=== PATIENT | male | born 1935 | race Caucasian/White ===

== ENCOUNTER 2017-08-27 17:32 | Inpatient (IN) | payer MEDICARE, OTHER ==
--- NOTE | 2017-08-27 19:00 | ED Physician Chart ---
ED Chief Complaint/HPI - Patient Information Date Seen:: 08/27/17 Time Seen:: 17:45 Chief Complaint:: Depression History of Present Illness:: onset x 3 days of depression; no report of trauma, SIs, H/As, neck pain, C/P, SOB, Abd. pain, A/N/V/D/C, fever, chills, or urinary s/s Allergies:: Allergies Allergy/AdvReac Type Severity Reaction Status Date / Time No Known Allergies Allergy Verified 08/27/17 17:53 Vitals:: Vital Signs - 8 hr 08/27/17 17:46 Temp 97.7 F HR 81 RR 15 BP 112/52 O2 Sat % 95 Historian:: Patient, EMS Review:: Nurse's Note Reviewed, Old Chart Reviewed, EMS run form Reviewed <Abraham Verdugo - Last Filed: 08/27/17 18:57> - Patient Information Allergies:: Allergies Allergy/AdvReac Type Severity Reaction Status Date / Time No Known Allergies Allergy Verified 08/27/17 17:53 Vitals:: Vital Signs - 8 hr 08/27/17 17:46 Temp 97.7 F HR 81 RR 15 BP 112/52 O2 Sat % 95 <Andrei Forde - Last Filed: 08/27/17 20:06> ED Review of Systems - Review of Systems General/Constitutional: No fever, No chills, No weight loss, No weakness, No diaphoresis, No edema, No loss of appetite Skin: No skin lesions, No rash, No bruising Head: No headache, No light-headedness Eyes: No loss of vision, No pain, No diplopia ENT: No earache, No nasal drainage, No sore throat, No tinnitus Neck: No neck pain, No swelling, No thyromegaly, No stiffness, No mass noted Cardio Vascular: No chest pain, No palpitations, No PND, No orthopnea, No edema Pulmonary: No SOB, No cough, No sputum, No wheezing GI: No nausea, No vomiting, No diarrhea, No pain, No melena, No hematochezia, No constipation, No hematemesis G/U: No dysuria, No frequency, No hematuria, No nacturia Musculoskeletal: No bone or joint pain, No back pain, No muscle pain Endocrine: No polyuria, No polydipsia Psychiatric: Prior psych history, Depression, Anxiety, No suicidal ideation, No homicidal ideation, No auditory hallucination, No visual hallucination Hematopoietic: No bruising, No lymphadenopathy Allergic/Immuno: No urticaria, No angioedema Neurological: No syncope, No focal symptoms, No weakness, No paresthesia, No headache, No seizure, No dizziness, Confusion, No vertigo <Abraham Verdugo - Last Filed: 08/27/17 18:57> ED Past Medical History - Past Medical History Obtainable: Yes Past Medical History: Asthma/COPD, PUD/GERD, Dementia Family History: HTN Social History: Non Smoker, Alcohol, No Drug Use, Single, Care Facility Surgical History: None Psychiatricy History: Depression, Dementia Medication: Reviewed <Nayajeojse mAbraham - Last Filed: 08/27/17 18:57> ED Physical Exam - Physical Examination General/Constitutional: Awake, Well-developed, well-nourished, Alert, No distress, GCS 15, Non-toxic appearing, Ambulatory Head: Atraumatic Eyes: Lids, conjuctiva normal, PERRL, EOMI Skin: Nl inspection, No rash, No skin lesions, No ecchymosis, Well hydrated, No lymphadenopathy ENMT: External ears, nose nl, TM canals nl, Nasal exam nl, Lips, teeth, gums nl , Oropharynx nl, Tonsils nl Neck: Nontender, Full ROM w/o pain, No JVD, No nuchal rigidity, No bruit, No mass, No stridor Respiratory: Nl effort/Exclusion, Clear to Auscultation, No Wheeze/Rhonchi/Rales Cardio Vascular: RRR, No murmur, gallop, rubs, NL S1 S2, Carotid/Femoral/Distal pulses equal bilaterally GI: No tenderness/rebounding/guarding, No organomegaly, No hernia, Normal BS's, Nondistended, No mass/bruits, No McBurney tenderness : No CVA tenderness Extremities: No tenderness or effusion, Full ROM, normal strength in all extremities, No edema, Normal digits & nails Neuro/Psych: Alert/oriented, DTR's symmetric, Normal sensory exam, Normal motor strength, Judgement/insight normal, Mood normal, Normal gait, No focal deficits Other Neuro/Psych comments:: Mood/Affect: Labile; + Psychomotor Retardation; no SIs Misc: Normal back, No paraspinal tenderness <Abraham Verdugo - Last Filed: 08/27/17 18:57> ED Labs/Radiology/EKG Results - Lab Results Results: Laboratory Tests 08/27/17 08/27/17 19:17 19:17 WBC 7.1 RBC 4.30 Hgb 13.8 Hct 41.3 MCV 96.2 MCH 32.0 H MCHC Differential 33.3 RDW 13.1 Plt Count 183 MPV 7.4 Neutrophils % 63.3 Lymphocytes % 23.4 Monocytes % 6.2 Eosinophils % 6.8 H Basophils % 0.3 Sodium 137 Potassium 4.4 Chloride 106 Carbon Dioxide 26.7 Anion Gap 8.7 BUN 21 Creatinine 1.2 Est GFR ( Amer) TNP Est GFR (Non-Af Amer) TNP BUN/Creatinine Ratio 17.5 Glucose 96 Calcium 9.0 Total Bilirubin 0.4 AST 22 ALT 20 Alkaline Phosphatase 97 Total Protein 7.3 Albumin 3.7 L Globulin 3.6 Albumin/Globulin Ratio 1.0 Triglycerides 95 Cholesterol 188 LDL Cholesterol Direct 124 HDL Cholesterol 56 Salicylates < 25.0 L Acetaminophen < 10.0 L Ethyl Alcohol < 10 - EKG Interpretations Rate & Rhythm: normal sinus rhythm with a rate of 61; normal axis deviation Comments:: No ST or T changes <Andrei Forde - Last Filed: 08/27/17 20:06> ED Septic Shock - . Is Septic Shock (SBP<90, OR Lactate>4 mmol\L) present?: No - <6hrs of presentation: Vital Signs: Vital Signs - 8 hr 08/27/17 17:46 Temp 97.7 F HR 81 RR 15 BP 112/52 O2 Sat % 95 <Abraham Verdugo - Last Filed: 08/27/17 18:57> - <6hrs of presentation: Vital Signs: Vital Signs - 8 hr 08/27/17 17:46 Temp 97.7 F HR 81 RR 15 BP 112/52 O2 Sat % 95 <Andrei Forde - Last Filed: 08/27/17 20:06> ED Reassessment (Disposition) - Reassessment Reassessment Condition:: Improved - Diagnosis Diagnosis:: Depression; Medical clearance <Abraham Verdugo - Last Filed: 06/11/18 18:57> - Patient Disposition Admitting Medical Physician:: Carlos Whitley Admitting Psych Physician:: Espinoza Espinal Condition at Disposition:: Stable, Unchanged <Andrei Forde - Last Filed: 08/27/17 20:06> ED Discharge Plan <Abraham Verdugo - Last Filed: 08/27/17 18:57> <Andrei Forde - Last Filed: 08/27/17 20:06> - Patient Disposition Instructions: Psychosis
[2017-08-27 19:28] LABS: % BASOPHILS 0.3 % (0.0-2.0); % EOSINOPHILS 6.8 % (0.0-5.0); % LYMPHOCYTES 23.4 % (20.0-50.0); % MONOCYTES 6.2 % (2.0-10.0); % NEUTROPHILS 63.3 % (40.0-80.0); EOSINOPHILE ABSOLUTE 0.5 Th/cmm (0.1-0.4); HEMATOCRIT 41.3 % (41.0-60); HEMOGLOBIN 13.8 gm/dL (12-16); LYMPHOCYTE ABSOLUTE 1.7 Th/cmm (1.5-3.0); MEAN CELL VOLUME 96.2 fl (80-99); MEAN CORPUSCULAR HGB CONC 33.3 pg (28.0-36.0); MEAN PLATELET VOLUME 7.4 fl; MONOCYTE ABSOLUTE 0.4 Th/cmm (0.3-1.0); NEUTROPHILE ABSOLUTE 4.5 Th/cmm (1.8-8.0); PLATELET COUNT 183 Th/cmm (150-400); RED CELL DISTRIBUTION WIDTH 13.1 % (11.5-20.0); WHITE BLOOD COUNT 7.1 Th/cmm (4.8-10.8)
[2017-08-27 19:44] LABS: ACETAMINOPHEN < 10.0 ug/mL (10.0-30.0); ALBUMIN 3.7 gm/dL (4.2-5.5); ALKALINE PHOSPHATASE 97 U/L (34-104); ANION GAP 8.7 (7.0-16.0); BILIRUBIN,TOTAL 0.4 mg/dL (0.3-1.0); BUN - UREA NITROGEN 21 mg/dL (7-25); CARBON DIOXIDE 26.7 mEq/L (21.0-31.0); CHLORIDE 106 mEq/L (98-107); CHOLESTEROL 188 mg/dL (<200); CREATININE - SERUM 1.2 mg/dL (0.7-1.3); GLUCOSE 96 mg/dL (70-105); HDL -HIGH DENSITY LIPOPROTEIN 56 mg/dL (23-92); POTASSIUM SERUM 4.4 mEq/L (3.5-5.1); SALICYLATES (ASPIRIN) < 25.0 mg/L (30.0-100.0); SGOT 22 U/L (13-39); SGPT/ALT 20 U/L (7-52); SODIUM SERUM 137 mEq/L (136-145); TOTAL PROTEIN,SERUM 7.3 gm/dL (6.0-8.3); TRIGLYCERIDES 95 mg/dL (<150)
[2017-08-27 21:01] VITALS: BP 135/90
[2017-08-27] MEDS ORDERED: Magnesium Hydroxide (MOM) 30 mL UDC PO PRN (21:02)
[2017-08-27] MEDS ORDERED: Maalox 30 mL Cup PO PRN (21:02)
[2017-08-28] MEDS ORDERED: ALBUTEROL IH SCH (09:00)
[2017-08-28] MEDS ORDERED: TIOTROPIUM BROMIDE 18 MCG INH SCH (09:00)
--- NOTE | 2017-08-28 09:11 | History and Physical ---
History of Present Illness - HPI Chief Complaint: Depression HPI: Patient was send from [facility] for evaluation of Depression. 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 GI: Report: No Pertinent Hx Psych: Report: Depression Musculoskeletal: Report: No Pertinent Hx Rheumatologic: Report: No pertinent Hx Infectious Disease: Report: No Pertinent Hx Renal/: Report: No Pertinent Hx Endocrine: Report: No Pertinent Hx Dermatology: Report: No Pertinent Hx - Past Surgical History Past Surgical History: No pertinent Hx Family Medical History - Family Member Mother History Unknown: Yes Ethnicity: Unknown Living Status: Unknown Social History Smoke: No Alcohol: None Drugs: None [facility] Domestic Violence: Negative - Medications Home Medications: Home Medication Medication Instructions Recorded Type Albuterol Sulfate [Ventolin Hfa] 90 mcg IH BID 08/27/17 History Citalopram Hydrobromide 10 mg PO DAILY 08/27/17 History [Citalopram HBr] Donepezil HCl [Aricept] 10 mg PO HS 08/27/17 History Magnesium Hydroxide [Milk of 30 ml PO HS PRN 08/27/17 History Magnesia] Memantine HCl [Namenda Xr] 28 mg PO HS 08/27/17 History Multivitamin [Multivitamins] 1 tab PO DAILY 08/27/17 History Tiotropium [place] [Spiriva] 18 mcg IH DAILY 08/27/17 History - Allergies Allergies/Adverse Reactions: Allergies Allergy/AdvReac Type Severity Reaction Status Date / Time No Known Allergies Allergy Verified 08/27/17 17:53 Review of Systems - Review of Systems Constitutional: Report: No Significant Eyes: Report: No Significant ENT: Report: No Significant Respiratory: Report: No Significant Cardiovascular: Report: No Significant Gastrointestinal: Report: No Significant Genitourinary: Report: No Significant Musculoskeletal: Report: No Significant Skin: Report: No Significant Neurological: Report: Weakness Physical Exam - Physical Exam HEENT: Report: Ears Nose Throat within normal limits Neck: Report: Within normal limits Cardiovascular Systems: Report: Regular, Rate and Rhythm Respiratory: Report: Breath Sounds are within normal limits Abdomen: Report: Non-tender to palpation Back: Report: Inspection of back is within normal limits. Extremities: Report: Non-tender to palpation. Skin: Report: Color of skin is within normal limits Neuro/Psych: Report: Disoriented to name time or place, Depressed affect - Lab Results All Lab Results last 24 hours: Laboratory Results - last 24 hr 08/27/17 08/27/17 08/27/17 19:17 19:17 19:17 WBC 7.1 RBC 4.30 Hgb 13.8 Hct 41.3 MCV 96.2 MCH 32.0 H MCHC Differential 33.3 RDW 13.1 Plt Count 183 MPV 7.4 Neutrophils % 63.3 Lymphocytes % 23.4 Monocytes % 6.2 Eosinophils % 6.8 H Basophils % 0.3 Sodium 137 Potassium 4.4 Chloride 106 Carbon Dioxide 26.7 Anion Gap 8.7 BUN 21 Creatinine 1.2 Est GFR ( Amer) TNP Est GFR (Non-Af Amer) TNP BUN/Creatinine Ratio 17.5 Glucose 96 Calcium 9.0 Total Bilirubin 0.4 AST 22 ALT 20 Alkaline Phosphatase 97 Total Protein 7.3 Albumin 3.7 L Globulin 3.6 Albumin/Globulin Ratio 1.0 Triglycerides 95 Cholesterol 188 LDL Cholesterol Direct 124 HDL Cholesterol 56 TSH 1.92 Salicylates < 25.0 L Acetaminophen < 10.0 L Ethyl Alcohol < 10 - Assessment Assessment: Patient is awake, alert, calm, depress. Dx: Dementia alzheimer type, Depression , COPD - Plan Plan: Patient is under Psychiatric care, continue with SNF meds. Will continue to monitor.
[2017-08-28] MEDS: Multivitamin Tab PO SCH (09:48)
--- NOTE | 2017-08-28 12:17 | Psychosocial Evaluation ---
DATE OF SERVICE: 08/27/2017 IDENTIFYING INFORMATION: The patient is an 82-year-old male. CHIEF COMPLAINT: No answer. HISTORY OF PRESENT ILLNESS: The patient was sent from [facility] facility because of agitation and aggressive towards staff with a history of psychosis, NOS. The patient himself was a poor historian. He complained of feeling tired. He could not sleep well with poor appetite. He reports he is unable to tell me the date. He is unable to tell me his age, but he was told me he was for 5 years and has 12 children. 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 Denies substance abuse, but very confused, has been on Celexa. The patient is unpredictable and impulsive. He is on Celexa 10 mg a day. MEDICAL HISTORY: Deferred to the medical doctor. ALLERGIES: He has no known drug allergy. MEDICATIONS: The patient unable to give me information. FAMILY AND SOCIAL HISTORY: The patient is for 5 years, was for a long period of time, maybe 54 and 24 years of age he said, not sure. He reports that he did not know where he lived, he lived at [facility]. 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 He reports that he is a poor historian, unable to tell me further information regarding family history. MENTAL STATUS EXAMINATION: The patient is appropriately dressed, not well groomed. He was alert. He was, however, confused, unable to tell me the date, where he is, why he is here, unable to participate in meaningful conversation or make safe plan for self-care. Long and short term memory is poor. He denies any auditory or visual hallucinations. Denies any intent to harm self or anybody. He was acting agitated and aggressive at the [facility]. His insight and judgment is impaired. IMPRESSION: AXIS I: Psychosis, not otherwise specified, dementia. Depression, not otherwise specified. MEDICAL DIAGNOSES: Deferred to the medical doctor. His assets, he is accepting treatment and negative poor coping skills. INITIAL TREATMENT PLAN: The patient will be continued with the Celexa and Aricept 10 mg at bedtime. We will do group therapy, milieu therapy, and individual therapy. ESTIMATED LENGTH OF STAY: 3-7 days. DISCHARGE CRITERIA: Decreasing depression, agitation after discharge, outpatient. JOB# [id number]
[2017-08-28 15:47] LABS: A1C % 6.7 % (4.0-6.0)
[2017-08-28] MEDS ORDERED: Albuterol/Ipratropium Neb 3 ML AERS HHN SCH (19:00)
[2017-08-29] MEDS: Multivitamin Tab PO SCH (09:10)
--- NOTE | 2017-08-29 12:41 | General Progress Note ---
Subjective - Review of Systems Service Date: 08/29/17 Subjective: Patient is confused Objective - Results Result Diagrams: 08/27/17 19:17 08/27/17 19:17 Recent Labs: Laboratory Last Values WBC 7.1 Th/cmm (4.8-10.8) 08/27/17 19:17 RBC 4.30 Mil/cmm (3.80-5.80) 08/27/17 19:17 Hgb 13.8 gm/dL (12-16) 08/27/17 19:17 Hct 41.3 % (41.0-60) 08/27/17 19:17 MCV 96.2 fl (80-99) 08/27/17 19:17 MCH 32.0 pg (27.0-31.0) H 08/27/17 19:17 MCHC Differential 33.3 pg (28.0-36.0) 08/27/17 19:17 RDW 13.1 % (11.5-20.0) 08/27/17 19:17 Plt Count 183 Th/cmm (150-400) 08/27/17 19:17 MPV 7.4 fl 08/27/17 19:17 Neutrophils % 63.3 % (40.0-80.0) 08/27/17 19:17 Lymphocytes % 23.4 % (20.0-50.0) 08/27/17 19:17 Monocytes % 6.2 % (2.0-10.0) 08/27/17 19:17 Eosinophils % 6.8 % (0.0-5.0) H 08/27/17 19:17 Basophils % 0.3 % (0.0-2.0) 08/27/17 19:17 Sodium 137 mEq/L (136-145) 08/27/17 19:17 Potassium 4.4 mEq/L (3.5-5.1) 08/27/17 19:17 Chloride 106 mEq/L (98-107) 08/27/17 19:17 Carbon Dioxide 26.7 mEq/L (21.0-31.0) 08/27/17 19:17 Anion Gap 8.7 (7.0-16.0) 08/27/17 19:17 BUN 21 mg/dL (7-25) 08/27/17 19:17 Creatinine 1.2 mg/dL (0.7-1.3) 08/27/17 19:17 Est GFR ( Amer) TNP 08/27/17 19:17 Est GFR (Non-Af Amer) TNP 08/27/17 19:17 BUN/Creatinine Ratio 17.5 08/27/17 19:17 Glucose 96 mg/dL (70-105) 08/27/17 19:17 Hemoglobin A1c % 6.7 % (4.0-6.0) H 08/27/17 19:17 Calcium 9.0 mg/dL (8.6-10.3) 08/27/17 19:17 Total Bilirubin 0.4 mg/dL (0.3-1.0) 08/27/17 19:17 AST 22 U/L (13-39) 08/27/17 19:17 ALT 20 U/L (7-52) 08/27/17 19:17 Alkaline Phosphatase 97 U/L (34-104) 08/27/17 19:17 Total Protein 7.3 gm/dL (6.0-8.3) 08/27/17 19:17 Albumin 3.7 gm/dL (4.2-5.5) L 08/27/17 19:17 Globulin 3.6 gm/dL 08/27/17 19:17 Albumin/Globulin Ratio 1.0 (1.0-1.8) 08/27/17 19:17 Triglycerides 95 mg/dL (<150) 08/27/17 19:17 Cholesterol 188 mg/dL (<200) 08/27/17 19:17 LDL Cholesterol Direct 124 mg/dL (75-193) 08/27/17 19:17 HDL Cholesterol 56 mg/dL (23-92) 08/27/17 19:17 TSH 1.92 uIU/ml (0.34-5.60) 08/27/17 19:17 Salicylates < 25.0 mg/L (30.0-100.0) L 08/27/17 19:17 Acetaminophen < 10.0 ug/mL (10.0-30.0) L 08/27/17 19:17 Ethyl Alcohol < 10 mg/dL (0-10) 08/27/17 19:17 RPR NONREACTIVE (NONREACTIVE) 08/27/17 19:17 - Physical Exam Vitals and I&O: Vital Signs Temp 97.2 F 08/29/17 06:42 Pulse 80 08/29/17 06:42 Resp 20 08/29/17 06:42 BP 140/76 08/29/17 06:42 Pulse Ox 96 08/29/17 06:42 Intake & Output 08/28/17 08/29/17 08/29/17 18:59 06:59 18:59 Intake Total 1200 120 Balance 1200 120 Intake: Oral 1200 120 Other: # Voids 3 2 Active Medications: Current Medications Acetaminophen (Tylenol) 650 mg PO Q4HR PRN PRN Reason: Mild Pain / Temp above 100 Stop: 10/26/17 21:01 Al Hydrox/Mg Hydrox/Simethicone (Maalox) 30 ml PO Q4HR PRN PRN Reason: GI DISTRESS Stop: 10/26/17 21:01 Albuterol/Ipratropium (Duoneb Neb) 3 ml HHN BIDRT [facility] Stop: 10/27/17 18:59 Citalopram Hydrobromide (Celexa) 10 mg PO DAILY [facility]; Protocol Stop: 10/27/17 08:59 Last Admin: 08/29/17 09:09 Dose: 10 mg Donepezil HCl (Aricept) 10 mg PO HS [facility] Stop: 10/27/17 20:59 Last Admin: 08/28/17 21:10 Dose: 10 mg Lorazepam (Ativan) 0.5 mg PO Q4HR PRN; Protocol PRN Reason: anxiety/agitation Stop: 09/26/17 21:01 Last Admin: 08/28/17 12:52 Dose: 0.5 mg Magnesium Hydroxide (Milk Of Magnesia) 30 ml PO HS PRN PRN Reason: Constipation Memantine (Namenda) 10 mg PO BID [facility] Stop: 10/28/17 08:59 Last Admin: 08/29/17 09:10 Dose: 10 mg Multivitamins/Vitamin C (Theragran) 1 tab PO DAILY [facility] Stop: 10/27/17 08:59 Last Admin: 08/29/17 09:10 Dose: 1 tab Zolpidem Tartrate (Ambien) 5 mg PO HS PRN PRN Reason: Insomnia Stop: 10/26/17 21:01 Last Admin: 08/28/17 21:10 Dose: 5 mg General: Alert, No acute distress HEENT: Atraumatic Neck: Supple Cardiovascular: Regular rate Lungs: Clear to auscultation Abdomen: Bowel sounds, Soft Extremities: Other (NO edema) Neurological: Normal gait Skin: Other (Warm and dry) Psych/Mental Status: Other (Confused, not oriented) Assessment/Plan - Assessment Assessment: Patient is awake, alert, calm, depress. Dx: Dementia alzheimer type, Depression , COPD - Plan Plan: Patient is under Psychiatric care, continue with SNF meds. Will continue to monitor.
[2017-08-30] MEDS: Multivitamin Tab PO SCH (09:11)
--- NOTE | 2017-08-30 09:47 | General Progress Note ---
Subjective - Review of Systems Service Date: 08/30/17 Subjective: Patient is confused Objective - Results Result Diagrams: 08/27/17 19:17 08/27/17 19:17 Recent Labs: Laboratory Last Values WBC 7.1 Th/cmm (4.8-10.8) 08/27/17 19:17 RBC 4.30 Mil/cmm (3.80-5.80) 08/27/17 19:17 Hgb 13.8 gm/dL (12-16) 08/27/17 19:17 Hct 41.3 % (41.0-60) 08/27/17 19:17 MCV 96.2 fl (80-99) 08/27/17 19:17 MCH 32.0 pg (27.0-31.0) H 08/27/17 19:17 MCHC Differential 33.3 pg (28.0-36.0) 08/27/17 19:17 RDW 13.1 % (11.5-20.0) 08/27/17 19:17 Plt Count 183 Th/cmm (150-400) 08/27/17 19:17 MPV 7.4 fl 08/27/17 19:17 Neutrophils % 63.3 % (40.0-80.0) 08/27/17 19:17 Lymphocytes % 23.4 % (20.0-50.0) 08/27/17 19:17 Monocytes % 6.2 % (2.0-10.0) 08/27/17 19:17 Eosinophils % 6.8 % (0.0-5.0) H 08/27/17 19:17 Basophils % 0.3 % (0.0-2.0) 08/27/17 19:17 Sodium 137 mEq/L (136-145) 08/27/17 19:17 Potassium 4.4 mEq/L (3.5-5.1) 08/27/17 19:17 Chloride 106 mEq/L (98-107) 08/27/17 19:17 Carbon Dioxide 26.7 mEq/L (21.0-31.0) 08/27/17 19:17 Anion Gap 8.7 (7.0-16.0) 08/27/17 19:17 BUN 21 mg/dL (7-25) 08/27/17 19:17 Creatinine 1.2 mg/dL (0.7-1.3) 08/27/17 19:17 Est GFR ( Amer) TNP 08/27/17 19:17 Est GFR (Non-Af Amer) TNP 08/27/17 19:17 BUN/Creatinine Ratio 17.5 08/27/17 19:17 Glucose 96 mg/dL (70-105) 08/27/17 19:17 Hemoglobin A1c % 6.7 % (4.0-6.0) H 08/27/17 19:17 Calcium 9.0 mg/dL (8.6-10.3) 08/27/17 19:17 Total Bilirubin 0.4 mg/dL (0.3-1.0) 08/27/17 19:17 AST 22 U/L (13-39) 08/27/17 19:17 ALT 20 U/L (7-52) 08/27/17 19:17 Alkaline Phosphatase 97 U/L (34-104) 08/27/17 19:17 Total Protein 7.3 gm/dL (6.0-8.3) 08/27/17 19:17 Albumin 3.7 gm/dL (4.2-5.5) L 08/27/17 19:17 Globulin 3.6 gm/dL 08/27/17 19:17 Albumin/Globulin Ratio 1.0 (1.0-1.8) 08/27/17 19:17 Triglycerides 95 mg/dL (<150) 08/27/17 19:17 Cholesterol 188 mg/dL (<200) 08/27/17 19:17 LDL Cholesterol Direct 124 mg/dL (75-193) 08/27/17 19:17 HDL Cholesterol 56 mg/dL (23-92) 08/27/17 19:17 TSH 1.92 uIU/ml (0.34-5.60) 08/27/17 19:17 Salicylates < 25.0 mg/L (30.0-100.0) L 08/27/17 19:17 Acetaminophen < 10.0 ug/mL (10.0-30.0) L 08/27/17 19:17 Ethyl Alcohol < 10 mg/dL (0-10) 08/27/17 19:17 RPR NONREACTIVE (NONREACTIVE) 08/27/17 19:17 - Physical Exam Vitals and I&O: Vital Signs Temp 97.2 F 08/30/17 06:34 Pulse 62 08/30/17 06:34 Resp 19 08/30/17 06:34 BP 125/69 08/30/17 06:34 Pulse Ox 97 08/30/17 06:34 Intake & Output 08/29/17 08/30/17 08/30/17 18:59 06:59 18:59 Intake Total 1200 120 Balance 1200 120 Intake: Oral 1200 120 Other: # Voids 3 2 # Bowel Movements 1 Active Medications: Current Medications Acetaminophen (Tylenol) 650 mg PO Q4HR PRN PRN Reason: Mild Pain / Temp above 100 Stop: 10/26/17 21:01 Al Hydrox/Mg Hydrox/Simethicone (Maalox) 30 ml PO Q4HR PRN PRN Reason: GI DISTRESS Stop: 10/26/17 21:01 Albuterol/Ipratropium (Duoneb Neb) 3 ml HHN BIDRT [facility] Stop: 10/27/17 18:59 Citalopram Hydrobromide (Celexa) 10 mg PO DAILY [facility]; Protocol Stop: 10/27/17 08:59 Last Admin: 08/30/17 09:07 Dose: 10 mg Donepezil HCl (Aricept) 10 mg PO HS [facility] Stop: 10/27/17 20:59 Last Admin: 08/29/17 21:08 Dose: 10 mg Lorazepam (Ativan) 0.5 mg PO Q4HR PRN; Protocol PRN Reason: anxiety/agitation Stop: 09/26/17 21:01 Last Admin: 08/29/17 16:08 Dose: 0.5 mg Magnesium Hydroxide (Milk Of Magnesia) 30 ml PO HS PRN PRN Reason: Constipation Memantine (Namenda) 10 mg PO BID [facility] Stop: 10/28/17 08:59 Last Admin: 08/30/17 09:11 Dose: 10 mg Multivitamins/Vitamin C (Theragran) 1 tab PO DAILY [facility] Stop: 10/27/17 08:59 Last Admin: 08/30/17 09:11 Dose: 1 tab Zolpidem Tartrate (Ambien) 5 mg PO HS PRN PRN Reason: Insomnia Stop: 10/26/17 21:01 Last Admin: 08/29/17 21:09 Dose: 5 mg General: Alert, No acute distress HEENT: Atraumatic Neck: Supple Cardiovascular: Regular rate Lungs: Clear to auscultation Abdomen: Bowel sounds, Soft Extremities: Other (NO edema) Neurological: Normal gait Skin: Other (Warm and dry) Psych/Mental Status: Other (Confused, not oriented) Assessment/Plan - Assessment Assessment: Patient is awake, alert, calm, depress. Dx: Dementia alzheimer type, Depression , COPD - Plan Plan: Patient is under Psychiatric care, continue with SNF meds. Will continue to monitor.
--- NOTE | 2017-08-30 20:41 | Progress Notes ---
DATE: SUBJECTIVE: Chart reviewed and the patient interviewed. Also discussed the patient's condition with the staff and reviewed records and labs. The patient is still aggressive and is still intrusive to others. Also, is still easily agitated and easily irritable. The patient also is still wandering around the unit and aggressive with others. Otherwise, the patient is compliant with taking his medications with no side effects of Celexa and Aricept. ASSESSMENT: The patient is still aggressive and needs close monitoring. TREATMENT PLAN: Continue Celexa and Aricept. Also, continue to work on his aggressive behavior and poor impulse control and we will continue to follow up. JOB# [id number]
[2017-08-31] MEDS: Multivitamin Tab PO SCH (09:18)
--- NOTE | 2017-08-31 09:18 | General Progress Note ---
Subjective - Review of Systems Service Date: 08/31/17 Subjective: Patient is confused Objective - Results Result Diagrams: 08/27/17 19:17 08/27/17 19:17 Recent Labs: Laboratory Last Values WBC 7.1 Th/cmm (4.8-10.8) 08/27/17 19:17 RBC 4.30 Mil/cmm (3.80-5.80) 08/27/17 19:17 Hgb 13.8 gm/dL (12-16) 08/27/17 19:17 Hct 41.3 % (41.0-60) 08/27/17 19:17 MCV 96.2 fl (80-99) 08/27/17 19:17 MCH 32.0 pg (27.0-31.0) H 08/27/17 19:17 MCHC Differential 33.3 pg (28.0-36.0) 08/27/17 19:17 RDW 13.1 % (11.5-20.0) 08/27/17 19:17 Plt Count 183 Th/cmm (150-400) 08/27/17 19:17 MPV 7.4 fl 08/27/17 19:17 Neutrophils % 63.3 % (40.0-80.0) 08/27/17 19:17 Lymphocytes % 23.4 % (20.0-50.0) 08/27/17 19:17 Monocytes % 6.2 % (2.0-10.0) 08/27/17 19:17 Eosinophils % 6.8 % (0.0-5.0) H 08/27/17 19:17 Basophils % 0.3 % (0.0-2.0) 08/27/17 19:17 Sodium 137 mEq/L (136-145) 08/27/17 19:17 Potassium 4.4 mEq/L (3.5-5.1) 08/27/17 19:17 Chloride 106 mEq/L (98-107) 08/27/17 19:17 Carbon Dioxide 26.7 mEq/L (21.0-31.0) 08/27/17 19:17 Anion Gap 8.7 (7.0-16.0) 08/27/17 19:17 BUN 21 mg/dL (7-25) 08/27/17 19:17 Creatinine 1.2 mg/dL (0.7-1.3) 08/27/17 19:17 Est GFR ( Amer) TNP 08/27/17 19:17 Est GFR (Non-Af Amer) TNP 08/27/17 19:17 BUN/Creatinine Ratio 17.5 08/27/17 19:17 Glucose 96 mg/dL (70-105) 08/27/17 19:17 Hemoglobin A1c % 6.7 % (4.0-6.0) H 08/27/17 19:17 Calcium 9.0 mg/dL (8.6-10.3) 08/27/17 19:17 Total Bilirubin 0.4 mg/dL (0.3-1.0) 08/27/17 19:17 AST 22 U/L (13-39) 08/27/17 19:17 ALT 20 U/L (7-52) 08/27/17 19:17 Alkaline Phosphatase 97 U/L (34-104) 08/27/17 19:17 Total Protein 7.3 gm/dL (6.0-8.3) 08/27/17 19:17 Albumin 3.7 gm/dL (4.2-5.5) L 08/27/17 19:17 Globulin 3.6 gm/dL 08/27/17 19:17 Albumin/Globulin Ratio 1.0 (1.0-1.8) 08/27/17 19:17 Triglycerides 95 mg/dL (<150) 08/27/17 19:17 Cholesterol 188 mg/dL (<200) 08/27/17 19:17 LDL Cholesterol Direct 124 mg/dL (75-193) 08/27/17 19:17 HDL Cholesterol 56 mg/dL (23-92) 08/27/17 19:17 TSH 1.92 uIU/ml (0.34-5.60) 08/27/17 19:17 Salicylates < 25.0 mg/L (30.0-100.0) L 08/27/17 19:17 Acetaminophen < 10.0 ug/mL (10.0-30.0) L 08/27/17 19:17 Ethyl Alcohol < 10 mg/dL (0-10) 08/27/17 19:17 RPR NONREACTIVE (NONREACTIVE) 08/27/17 19:17 - Physical Exam Vitals and I&O: Vital Signs Temp 98.4 F 08/31/17 07:08 Pulse 95 08/31/17 07:08 Resp 19 08/31/17 07:08 BP 138/74 08/31/17 07:08 Pulse Ox 97 08/31/17 07:08 Intake & Output 08/30/17 08/31/17 08/31/17 18:59 06:59 18:59 Intake Total 1200 500 Balance 1200 500 Intake: Oral 1200 500 Other: # Voids 4 # Bowel Movements 1 1 Active Medications: Current Medications Acetaminophen (Tylenol) 650 mg PO Q4HR PRN PRN Reason: Mild Pain / Temp above 100 Stop: 10/26/17 21:01 Al Hydrox/Mg Hydrox/Simethicone (Maalox) 30 ml PO Q4HR PRN PRN Reason: GI DISTRESS Stop: 10/26/17 21:01 Albuterol/Ipratropium (Duoneb Neb) 3 ml HHN BIDRT [facility] Stop: 10/27/17 18:59 Citalopram Hydrobromide (Celexa) 10 mg PO DAILY [facility]; Protocol Stop: 10/27/17 08:59 Last Admin: 08/30/17 09:07 Dose: 10 mg Donepezil HCl (Aricept) 10 mg PO HS [facility] Stop: 10/27/17 20:59 Last Admin: 08/30/17 20:54 Dose: 10 mg Lorazepam (Ativan) 0.5 mg PO Q4HR PRN; Protocol PRN Reason: anxiety/agitation Stop: 09/26/17 21:01 Last Admin: 08/29/17 16:08 Dose: 0.5 mg Magnesium Hydroxide (Milk Of Magnesia) 30 ml PO HS PRN PRN Reason: Constipation Memantine (Namenda) 10 mg PO BID [facility] Stop: 10/28/17 08:59 Last Admin: 08/30/17 17:10 Dose: 10 mg Multivitamins/Vitamin C (Theragran) 1 tab PO DAILY [facility] Stop: 10/27/17 08:59 Last Admin: 08/30/17 09:11 Dose: 1 tab Risperidone (Risperdal) 0.25 mg PO BID [facility]; Protocol Stop: 10/30/17 08:59 Zolpidem Tartrate (Ambien) 5 mg PO HS PRN PRN Reason: Insomnia Stop: 10/26/17 21:01 Last Admin: 08/30/17 20:54 Dose: 5 mg General: Alert, No acute distress HEENT: Atraumatic Neck: Supple Cardiovascular: Regular rate Lungs: Clear to auscultation Abdomen: Bowel sounds, Soft Extremities: Other (NO edema) Neurological: Normal gait Skin: Other (Warm and dry) Psych/Mental Status: Other (Confused, not oriented) Assessment/Plan - Assessment Assessment: Patient is awake, alert, calm, depress. Dx: Dementia alzheimer type, Depression , COPD - Plan Plan: Patient is under Psychiatric care, continue with SNF meds. Will continue to monitor. Nutritional Asmnt/Malnutr-PDOC - Dietary Evaluation Malnutrition Findings (Please click <Entered> for more info): Nutritional Asmnt/Malnutrition Start: 08/30/17 13: 59 Text: Status: Complete Freq: Protocol: Document 08/30/17 13:59 LCHENG (Rec: 08/30/17 14:05 [email or web address]) Nutritional Asmnt/Malnutrition Patient General Information Nutritional Screening Moderate Risk Diagnosis psychosis Pertinent Medical Hx/Surgical Hx dementia, depression Subjective Information pt seen sleeping in bed at time of visit. Per nurse note, pt oriented to self only. Per EMR, PO itnake 100% of meals. Current Diet Order/ Nutrition Support [facility] soft ground Pertinent Medications theragran Pertinent Labs 08/27 glucose 96, A1c 6.7 Nutritional Hx/Data Height 1.52 m Height (Calculated Centimeters) 152.4 Current Weight (lbs) 65.771 kg Weight (Calculated Kilograms) 65.8 Weight (Calculated Grams) 93359.9 [place] Body Weight 106 Body Mass Index (BMI) 28.3 Weight Status Overweight GI Symptoms GI Symptoms None Last BM 08/29 Difficult in: None Skin Integrity/Comment: intact Current %PO Good (75-100%) Estimated Nutritional Goals BEE in Kcals: Adj wt of IBW Calories/Kcals/Kg 25-30 Kcals Calculated 8488-4251 Protein: Adj wt of IBW Protein g/k-1.1 Protein Calculated 53-58 Fluid: ml 1325-1590ml (1ml/kcal) Nutritional Problem 1. Problem Problem altered nutrition related lab Etiology hx of hyperglycemia Signs/Symptoms: A1c 6.7 Malnutrition Alert Is there a minimum of two criteria No selected? Query Text:Check all the applicable criteria. A minimum of two criteria are recommended for diagnosis of either severe or non-severe malnutrition. Malnutrition Related to Morbid Obesity Malnutrition related to morbid obesity No Intervention/Recommendation Comments 1. Continue with [facility] soft ground diet as ordered. Monitor glucose level. If it goes high, will consider CCHO diet. 2. Monitor PO intake, wt, labs and skin integrity 3. F/U as low risk in 7 days, 09/06 Expected Outcomes/Goals Expected Outcomes/Goals 1. PO intake to meet at least 75% of nutritional needs. 2. Wt stability, skin to remain intact, labs to approach WNL.
--- NOTE | 2017-08-31 16:45 | Progress Notes ---
DATE: SUBJECTIVE: Chart reviewed and the patient interviewed. Also discussed the patient's condition with the staff and reviewed records and labs. The patient is still easily agitated and he is in angry and irritable mood. The patient also continued to have unpredictable behavior. The patient also is still suspicious and is still paranoid and needs lots of redirections. The patient also has difficulty communicating his needs because of language barrier since he only speaks [place]. Otherwise, the patient is compliant with taking Celexa and no side effect of Celexa. ASSESSMENT: The patient is still psychotic and confused. TREATMENT PLAN: Continue monitoring his behavior and his condition closely. Also, continue adjusting psychotropic medications and continue to work on his poor impulse control and his agitation. [facility]# [id number]
--- NOTE | 2017-08-31 20:31 | Progress Notes ---
DATE: 08/31/2017 PSYCHIATRIC PROGRESS NOTE: Chart reviewed and the patient interviewed. Also discussed the patient's condition with the staff and reviewed records and labs. The patient continued to be easily agitated and is still in irritable and angry mood. The patient also is still unpredictable behavior. The patient also is still suspicious and seems to be paranoid. The patient thinks that people stealing her clothes according to staff report. Otherwise, the patient is compliant with taking his medications, which is Celexa, Namenda and Aricept. ASSESSMENT: The patient is still psychotic and is still unpredictable and needs close monitoring. TREATMENT PLAN: Continue monitoring his condition and his medications closely. Also, we will add Risperdal in a dose of 0.25 mg twice a day and we will continue to follow up closely. [facility]# [id number]
[2017-09-01] MEDS: Multivitamin Tab PO SCH (08:47)
--- NOTE | 2017-09-01 11:14 | General Progress Note ---
Subjective - Review of Systems Service Date: 09/01/17 Subjective: Patient is confused Objective - Results Result Diagrams: 08/27/17 19:17 08/27/17 19:17 Recent Labs: Laboratory Last Values WBC 7.1 Th/cmm (4.8-10.8) 08/27/17 19:17 RBC 4.30 Mil/cmm (3.80-5.80) 08/27/17 19:17 Hgb 13.8 gm/dL (12-16) 08/27/17 19:17 Hct 41.3 % (41.0-60) 08/27/17 19:17 MCV 96.2 fl (80-99) 08/27/17 19:17 MCH 32.0 pg (27.0-31.0) H 08/27/17 19:17 MCHC Differential 33.3 pg (28.0-36.0) 08/27/17 19:17 RDW 13.1 % (11.5-20.0) 08/27/17 19:17 Plt Count 183 Th/cmm (150-400) 08/27/17 19:17 MPV 7.4 fl 08/27/17 19:17 Neutrophils % 63.3 % (40.0-80.0) 08/27/17 19:17 Lymphocytes % 23.4 % (20.0-50.0) 08/27/17 19:17 Monocytes % 6.2 % (2.0-10.0) 08/27/17 19:17 Eosinophils % 6.8 % (0.0-5.0) H 08/27/17 19:17 Basophils % 0.3 % (0.0-2.0) 08/27/17 19:17 Sodium 137 mEq/L (136-145) 08/27/17 19:17 Potassium 4.4 mEq/L (3.5-5.1) 08/27/17 19:17 Chloride 106 mEq/L (98-107) 08/27/17 19:17 Carbon Dioxide 26.7 mEq/L (21.0-31.0) 08/27/17 19:17 Anion Gap 8.7 (7.0-16.0) 08/27/17 19:17 BUN 21 mg/dL (7-25) 08/27/17 19:17 Creatinine 1.2 mg/dL (0.7-1.3) 08/27/17 19:17 Est GFR ( Amer) TNP 08/27/17 19:17 Est GFR (Non-Af Amer) TNP 08/27/17 19:17 BUN/Creatinine Ratio 17.5 08/27/17 19:17 Glucose 96 mg/dL (70-105) 08/27/17 19:17 Hemoglobin A1c % 6.7 % (4.0-6.0) H 08/27/17 19:17 Calcium 9.0 mg/dL (8.6-10.3) 08/27/17 19:17 Total Bilirubin 0.4 mg/dL (0.3-1.0) 08/27/17 19:17 AST 22 U/L (13-39) 08/27/17 19:17 ALT 20 U/L (7-52) 08/27/17 19:17 Alkaline Phosphatase 97 U/L (34-104) 08/27/17 19:17 Total Protein 7.3 gm/dL (6.0-8.3) 08/27/17 19:17 Albumin 3.7 gm/dL (4.2-5.5) L 08/27/17 19:17 Globulin 3.6 gm/dL 08/27/17 19:17 Albumin/Globulin Ratio 1.0 (1.0-1.8) 08/27/17 19:17 Triglycerides 95 mg/dL (<150) 08/27/17 19:17 Cholesterol 188 mg/dL (<200) 08/27/17 19:17 LDL Cholesterol Direct 124 mg/dL (75-193) 08/27/17 19:17 HDL Cholesterol 56 mg/dL (23-92) 08/27/17 19:17 TSH 1.92 uIU/ml (0.34-5.60) 08/27/17 19:17 Salicylates < 25.0 mg/L (30.0-100.0) L 08/27/17 19:17 Acetaminophen < 10.0 ug/mL (10.0-30.0) L 08/27/17 19:17 Ethyl Alcohol < 10 mg/dL (0-10) 08/27/17 19:17 RPR NONREACTIVE (NONREACTIVE) 08/27/17 19:17 - Physical Exam Vitals and I&O: Vital Signs Temp 98.5 F 08/31/17 20:34 Pulse 63 08/31/17 20:34 Resp 19 08/31/17 20:34 BP 104/52 08/31/17 20:34 Pulse Ox 95 08/31/17 20:34 Intake & Output 08/31/17 09/01/17 09/01/17 18:59 06:59 18:59 Intake Total 1700 240 Balance 1700 240 Intake: Oral 1700 240 Other: # Voids 4 1 # Bowel Movements 1 Active Medications: Current Medications Acetaminophen (Tylenol) 650 mg PO Q4HR PRN PRN Reason: Mild Pain / Temp above 100 Stop: 10/26/17 21:01 Al Hydrox/Mg Hydrox/Simethicone (Maalox) 30 ml PO Q4HR PRN PRN Reason: GI DISTRESS Stop: 10/26/17 21:01 Albuterol/Ipratropium (Duoneb Neb) 3 ml HHN BIDRT ON [facility] OF [facility] Stop: 10/27/17 18:59 Citalopram Hydrobromide (Celexa) 10 mg PO DAILY [facility] OF [facility]; Protocol Stop: 10/27/17 08:59 Last Admin: 09/01/17 08:47 Dose: 10 mg Donepezil HCl (Aricept) 10 mg PO HS [facility] Stop: 10/27/17 20:59 Last Admin: 08/31/17 21:31 Dose: 10 mg Lorazepam (Ativan) 0.5 mg PO Q4HR PRN; Protocol PRN Reason: anxiety/agitation Stop: 09/26/17 21:01 Last Admin: 08/29/17 16:08 Dose: 0.5 mg Magnesium Hydroxide (Milk Of Magnesia) 30 ml PO HS PRN PRN Reason: Constipation Memantine (Namenda) 10 mg PO BID [facility] Stop: 10/28/17 08:59 Last Admin: 09/01/17 08:47 Dose: 10 mg Multivitamins/Vitamin C (Theragran) 1 tab PO DAILY [facility] Stop: 10/27/17 08:59 Last Admin: 09/01/17 08:47 Dose: 1 tab Risperidone (Risperdal) 0.25 mg PO BID [facility]; Protocol Stop: 10/30/17 08:59 Last Admin: 09/01/17 08:48 Dose: 0.25 mg Zolpidem Tartrate (Ambien) 5 mg PO HS PRN PRN Reason: Insomnia Stop: 10/26/17 21:01 Last Admin: 08/30/17 20:54 Dose: 5 mg General: Alert, No acute distress HEENT: Atraumatic Neck: Supple Cardiovascular: Regular rate Lungs: Clear to auscultation Abdomen: Bowel sounds, Soft Extremities: Other (NO edema) Neurological: Normal gait Skin: Other (Warm and dry) Psych/Mental Status: Other (Confused, not oriented) Assessment/Plan - Assessment Assessment: Patient is awake, alert, calm, depress. Dx: Dementia alzheimer type, Depression , COPD, - Plan Plan: Patient is under Psychiatric care, continue with SNF meds. Will continue to monitor. Nutritional Asmnt/Malnutr-PDOC - Dietary Evaluation Malnutrition Findings (Please click <Entered> for more info): Nutritional Asmnt/Malnutrition Start: 08/30/17 13: 59 Text: Status: Complete Freq: Protocol: Document 08/30/17 13:59 [email or web address] (Rec: 08/30/17 14:05 ANTHONY [email or web address]) Nutritional Asmnt/Malnutrition Patient General Information Nutritional Screening Moderate Risk Diagnosis psychosis Pertinent Medical Hx/Surgical Hx dementia, depression Subjective Information pt seen sleeping in bed at time of visit. Per nurse note, pt oriented to self only. Per EMR, PO itnake 100% of meals. Current Diet Order/ Nutrition Support [facility] soft [facility] Pertinent Medications theragran Pertinent Labs 08/27 glucose 96, A1c 6.7 Nutritional Hx/Data Height 1.52 m Height (Calculated Centimeters) 152.4 Current Weight (lbs) 65.771 kg Weight (Calculated Kilograms) 65.8 Weight (Calculated Grams) 15541.9 [place] Body Weight 106 Body Mass Index (BMI) 28.3 Weight Status Overweight GI Symptoms GI Symptoms None Last BM 08/29 Difficult in: None Skin Integrity/Comment: intact Current %PO Good (75-100%) Estimated Nutritional Goals BEE in Kcals: Adj wt of IBW Calories/Kcals/Kg 25-30 Kcals Calculated 5261-6430 Protein: Adj wt of IBW Protein g/k-1.1 Protein Calculated 53-58 Fluid: ml 1325-1590ml (1ml/kcal) Nutritional Problem 1. Problem Problem altered nutrition related lab Etiology hx of hyperglycemia Signs/Symptoms: A1c 6.7 Malnutrition Alert Is there a minimum of two criteria No selected? Query Text:Check all the applicable criteria. A minimum of two criteria are recommended for diagnosis of either severe or non-severe malnutrition. Malnutrition Related to Morbid Obesity Malnutrition related to morbid obesity No Intervention/Recommendation Comments 1. Continue with [facility] diet as ordered. Monitor glucose level. If it goes high, will consider CCHO diet. 2. Monitor PO intake, wt, labs and skin integrity 3. F/U as low risk in 7 days, 09/06 Expected Outcomes/Goals Expected Outcomes/Goals 1. PO intake to meet at least 75% of nutritional needs. 2. Wt stability, skin to remain intact, labs to approach WNL.
--- NOTE | 2017-09-02 06:32 | Progress Notes ---
DATE: PSYCHIATRIC PROGRESS NOTE SUBJECTIVE: Chart reviewed and the patient interviewed. Also discussed the patient's condition with the staff and reviewed records and labs. The patient is still confused and is still anxious and restless. The patient also still needs lots of redirections. The patient also is still easily agitated. He also still wants to be left alone. Otherwise, the patient is compliant with taking his medication with no side effects of medication. The patient also continues to take Risperdal in a dose of 0.25 mg twice a day with no side effects. ASSESSMENT: The patient is still psychotic and needs close monitoring. TREATMENT PLAN: Continue to monitor his behavior and his condition closely and continue to follow up. [facility]# [id number]
[2017-09-02] MEDS: Multivitamin Tab PO SCH (08:58)
--- NOTE | 2017-09-02 11:41 | General Progress Note ---
Subjective - Review of Systems Service Date: 09/02/17 Subjective: Patient is confused Objective - Results Result Diagrams: 08/27/17 19:17 08/27/17 19:17 Recent Labs: Laboratory Last Values WBC 7.1 Th/cmm (4.8-10.8) 08/27/17 19:17 RBC 4.30 Mil/cmm (3.80-5.80) 08/27/17 19:17 Hgb 13.8 gm/dL (12-16) 08/27/17 19:17 Hct 41.3 % (41.0-60) 08/27/17 19:17 MCV 96.2 fl (80-99) 08/27/17 19:17 MCH 32.0 pg (27.0-31.0) H 08/27/17 19:17 MCHC Differential 33.3 pg (28.0-36.0) 08/27/17 19:17 RDW 13.1 % (11.5-20.0) 08/27/17 19:17 Plt Count 183 Th/cmm (150-400) 08/27/17 19:17 MPV 7.4 fl 08/27/17 19:17 Neutrophils % 63.3 % (40.0-80.0) 08/27/17 19:17 Lymphocytes % 23.4 % (20.0-50.0) 08/27/17 19:17 Monocytes % 6.2 % (2.0-10.0) 08/27/17 19:17 Eosinophils % 6.8 % (0.0-5.0) H 08/27/17 19:17 Basophils % 0.3 % (0.0-2.0) 08/27/17 19:17 Sodium 137 mEq/L (136-145) 08/27/17 19:17 Potassium 4.4 mEq/L (3.5-5.1) 08/27/17 19:17 Chloride 106 mEq/L (98-107) 08/27/17 19:17 Carbon Dioxide 26.7 mEq/L (21.0-31.0) 08/27/17 19:17 Anion Gap 8.7 (7.0-16.0) 08/27/17 19:17 BUN 21 mg/dL (7-25) 08/27/17 19:17 Creatinine 1.2 mg/dL (0.7-1.3) 08/27/17 19:17 Est GFR ( Amer) TNP 08/27/17 19:17 Est GFR (Non-Af Amer) TNP 08/27/17 19:17 BUN/Creatinine Ratio 17.5 08/27/17 19:17 Glucose 96 mg/dL (70-105) 08/27/17 19:17 Hemoglobin A1c % 6.7 % (4.0-6.0) H 08/27/17 19:17 Calcium 9.0 mg/dL (8.6-10.3) 08/27/17 19:17 Total Bilirubin 0.4 mg/dL (0.3-1.0) 08/27/17 19:17 AST 22 U/L (13-39) 08/27/17 19:17 ALT 20 U/L (7-52) 08/27/17 19:17 Alkaline Phosphatase 97 U/L (34-104) 08/27/17 19:17 Total Protein 7.3 gm/dL (6.0-8.3) 08/27/17 19:17 Albumin 3.7 gm/dL (4.2-5.5) L 08/27/17 19:17 Globulin 3.6 gm/dL 08/27/17 19:17 Albumin/Globulin Ratio 1.0 (1.0-1.8) 08/27/17 19:17 Triglycerides 95 mg/dL (<150) 08/27/17 19:17 Cholesterol 188 mg/dL (<200) 08/27/17 19:17 LDL Cholesterol Direct 124 mg/dL (75-193) 08/27/17 19:17 HDL Cholesterol 56 mg/dL (23-92) 08/27/17 19:17 TSH 1.92 uIU/ml (0.34-5.60) 08/27/17 19:17 Salicylates < 25.0 mg/L (30.0-100.0) L 08/27/17 19:17 Acetaminophen < 10.0 ug/mL (10.0-30.0) L 08/27/17 19:17 Ethyl Alcohol < 10 mg/dL (0-10) 08/27/17 19:17 RPR NONREACTIVE (NONREACTIVE) 08/27/17 19:17 - Physical Exam Vitals and I&O: Vital Signs Temp 97.4 F 09/02/17 06:36 Pulse 63 09/02/17 06:36 Resp 18 09/02/17 06:36 BP 115/62 09/02/17 06:36 Pulse Ox 96 09/02/17 06:36 Intake & Output 09/01/17 09/02/17 09/02/17 18:59 06:59 18:59 Intake Total 120 Balance 120 Intake: Oral 120 Other: # Voids 2 Active Medications: Current Medications Acetaminophen (Tylenol) 650 mg PO Q4HR PRN PRN Reason: Mild Pain / Temp above 100 Stop: 10/26/17 21:01 Al Hydrox/Mg Hydrox/Simethicone (Maalox) 30 ml PO Q4HR PRN PRN Reason: GI DISTRESS Stop: 10/26/17 21:01 Albuterol/Ipratropium (Duoneb Neb) 3 ml HHN BIDRT [facility] Stop: 10/27/17 18:59 Citalopram Hydrobromide (Celexa) 10 mg PO DAILY [facility]; Protocol Stop: 10/27/17 08:59 Last Admin: 09/02/17 08:59 Dose: 10 mg Donepezil HCl (Aricept) 10 mg PO HS [facility] Stop: 10/27/17 20:59 Last Admin: 09/01/17 21:32 Dose: 10 mg Lorazepam (Ativan) 0.5 mg PO Q4HR PRN; Protocol PRN Reason: anxiety/agitation Stop: 09/26/17 21:01 Last Admin: 08/29/17 16:08 Dose: 0.5 mg Magnesium Hydroxide (Milk Of Magnesia) 30 ml PO HS PRN PRN Reason: Constipation Memantine (Namenda) 10 mg PO BID [facility] Stop: 10/28/17 08:59 Last Admin: 09/02/17 09:00 Dose: 10 mg Multivitamins/Vitamin C (Theragran) 1 tab PO DAILY [facility] Stop: 10/27/17 08:59 Last Admin: 09/02/17 08:58 Dose: 1 tab Risperidone (Risperdal) 0.25 mg PO BID [facility]; Protocol Stop: 10/30/17 08:59 Last Admin: 09/02/17 08:58 Dose: 0.25 mg Zolpidem Tartrate (Ambien) 5 mg PO HS PRN PRN Reason: Insomnia Stop: 10/26/17 21:01 Last Admin: 09/01/17 21:32 Dose: 5 mg General: Alert, No acute distress HEENT: Atraumatic Neck: Supple Cardiovascular: Regular rate Lungs: Clear to auscultation Abdomen: Bowel sounds, Soft Extremities: Other (NO edema) Neurological: Normal gait Skin: Other (Warm and dry) Psych/Mental Status: Other (Confused, not oriented) Assessment/Plan - Assessment Assessment: Patient is awake, alert, calm, depress. Dx: Dementia alzheimer type, Depression , COPD, - Plan Plan: Patient is under Psychiatric care, continue with SNF meds. Will continue to monitor. Nutritional Asmnt/Malnutr-PDOC - Dietary Evaluation Malnutrition Findings (Please click <Entered> for more info): Nutritional Asmnt/Malnutrition Start: 08/30/17 13: 59 Text: Status: Complete Freq: Protocol: Document 08/30/17 13:59 VALERIEG (Rec: 08/30/17 14:05 MERCY [email or web address]) Nutritional Asmnt/Malnutrition Patient General Information Nutritional Screening Moderate Risk Diagnosis psychosis Pertinent Medical Hx/Surgical Hx dementia, depression Subjective Information pt seen sleeping in bed at time of visit. Per nurse note, pt oriented to self only. Per EMR, PO itnake 100% of meals. Current Diet Order/ Nutrition Support [facility] soft [facility] Pertinent Medications theragran Pertinent Labs 08/27 glucose 96, A1c 6.7 Nutritional Hx/Data Height 1.52 m Height (Calculated Centimeters) 152.4 Current Weight (lbs) 65.771 kg Weight (Calculated Kilograms) 65.8 Weight (Calculated Grams) 17287.9 [place] Body Weight 106 Body Mass Index (BMI) 28.3 Weight Status Overweight GI Symptoms GI Symptoms None Last BM 08/29 Difficult in: None Skin Integrity/Comment: intact Current %PO Good (75-100%) Estimated Nutritional Goals BEE in Kcals: Adj wt of IBW Calories/Kcals/Kg 25-30 Kcals Calculated 6274-0574 Protein: Adj wt of IBW Protein g/k-1.1 Protein Calculated 53-58 Fluid: ml 1325-1590ml (1ml/kcal) Nutritional Problem 1. Problem Problem altered nutrition related lab Etiology hx of hyperglycemia Signs/Symptoms: A1c 6.7 Malnutrition Alert Is there a minimum of two criteria No selected? Query Text:Check all the applicable criteria. A minimum of two criteria are recommended for diagnosis of either severe or non-severe malnutrition. Malnutrition Related to Morbid Obesity Malnutrition related to morbid obesity No Intervention/Recommendation Comments 1. Continue with [facility] soft [facility] diet as ordered. Monitor glucose level. If it goes high, will consider CCHO diet. 2. Monitor PO intake, wt, labs and skin integrity 3. F/U as low risk in 7 days, 09/06 Expected Outcomes/Goals Expected Outcomes/Goals 1. PO intake to meet at least 75% of nutritional needs. 2. Wt stability, skin to remain intact, labs to approach WNL.
--- NOTE | 2017-09-02 23:49 | Progress Notes ---
DATE: 09/02/2017 SUBJECTIVE: Chart reviewed and the patient interviewed. Also discussed the patient's condition with the staff and reviewed records and labs. The patient is forgetful and he is still confused. The patient also still needs lots of redirections. The patient on the other hand seems to be calmer and less agitated. ASSESSMENT: The patient is still confused. TREATMENT PLAN: Continue to monitor behavior. Also, continue adjusting psychotropic medications and follow up closely. JOB# [id number]
--- NOTE | 2017-09-04 02:32 | Discharge Summary ---
DATE OF DISCHARGE: 09/02/2017 PATIENT'S AGE: 82-year-old. SEX: Male. PHYSICIAN: Espinoza Espinal MD, MPH FINAL DIAGNOSES: PRIMARY DIAGNOSIS: Unspecified psychosis. SECONDARY DIAGNOSIS: Dementia, moderate to severe. REASON FOR HOSPITALIZATION: The patient was admitted to the hospital from [facility] because of increased agitation and aggressive behavior towards staff as well as the patient is not sleeping and has poor appetite. HOSPITAL COURSE: The patient continued to be in irritable and depressed mood. The patient also was having difficulty following directions. The patient was given Celexa in a dose of 10 mg every day as well as Namenda and Aricept. The patient continued to be agitated and aggressive and then was given Risperdal in a dose of 0.25 mg twice a day. The patient was calmer. He was less agitated and less irritable and the patient was discharged from the hospital. PHYSICAL EXAMINATION: Of the patient was basically within normal and the patient had no major medical problem while in the hospital. AFTER DISCHARGE PLAN: Outpatient treatment and followup will follow in [facility]. EXPECTED OUTCOME AFTER DISCHARGE: Fair if the patient continues outpatient treatment and follow up with discharge plans. [facility]# [id number]
== END 2017-09-02 14:15 | DRG 885 ==
LOC: ER 17:32 → GERO 20:19
PROVIDERS: ADMIT Psychiatry & Neurology Psychiatry; ATTEND Psychiatry & Neurology Psychiatry
DX: F29 Unspecified psychosis not due to a substance or known physiological condition (principal); F02.80 Dementia in other diseases classified elsewhere, unspecified severity, without behavioral disturbance, psychotic disturbance, mood disturbance, and anxiety; F32.9 Major depressive disorder, single episode, unspecified; J44.9 Chronic obstructive pulmonary disease, unspecified; G30.9 Alzheimer's disease, unspecified; K21.9 Gastro-esophageal reflux disease without esophagitis; Z82.49 Family history of ischemic heart disease and other diseases of the circulatory system
CPT/HCPCS: 36415-UA; 80053-TC; 80061-TC; 80320-TC; 80329-TC; 83036-90; 84443-TC; 85025-TC; 86592-TC; 93005; Z7610

== ENCOUNTER 2018-03-13 15:32 | Inpatient (IN) | payer MEDICARE, OTHER ==
[2018-03-13] MEDS ORDERED: Sodium Chloride 0.9% 500 ML IV ONE (16:06)
--- NOTE | 2018-03-13 16:09 | ED Physician Chart ---
ED Chief Complaint/HPI - Patient Information Date Seen:: 03/13/18 Time Seen:: 15:40 Chief Complaint:: Weakness History of Present Illness:: onset x 3 days of weakness and poor oral intake with low BP today; no report of trauma, LOC, ALOC, AMS, H/As, S/T, neck pain, cough, C/P, SOB, Abd. Pain, N/V/D/ C, fever, chills, or urinary s/s Allergies:: Allergies Allergy/AdvReac Type Severity Reaction Status Date / Time No Known Allergies Allergy Verified 03/13/18 15:36 Vitals:: Vital Signs - 8 hr 03/13/18 15:41 Temp 97.3 F HR 82 RR 18 BP 90/48 O2 Sat % 96 Historian:: Patient, EMS Review:: Nurse's Note Reviewed, Old Chart Reviewed, EMS run form Reviewed ED Review of Systems - Review of Systems General/Constitutional: No fever, No chills, No weight loss, Weakness, No diaphoresis, No edema, No loss of appetite Skin: No skin lesions, No rash, No bruising Head: No headache, No light-headedness Eyes: No loss of vision, No pain, No diplopia ENT: No earache, No nasal drainage, No sore throat, No tinnitus Neck: No neck pain, No swelling, No thyromegaly, No stiffness, No mass noted Cardio Vascular: No chest pain, No palpitations, No PND, No orthopnea, No edema Pulmonary: No SOB, No cough, No sputum, No wheezing GI: No nausea, No vomiting, No diarrhea, No pain, No melena, No hematochezia, No constipation, No hematemesis G/U: No dysuria, No frequency, No hematuria, No nacturia Musculoskeletal: No bone or joint pain, No back pain, No muscle pain Endocrine: No polyuria, No polydipsia Psychiatric: Prior psych history, Depression, Anxiety, No suicidal ideation, No homicidal ideation, No auditory hallucination, No visual hallucination Hematopoietic: No bruising, No lymphadenopathy Allergic/Immuno: No urticaria, No angioedema Neurological: No syncope, No focal symptoms, Weakness, No paresthesia, No headache, No seizure, No dizziness, Confusion, No vertigo ED Past Medical History - Past Medical History Obtainable: Yes Past Medical History: HTN, Dyslipidemia, PUD/GERD, Dementia Family History: HTN Social History: Non Smoker, No Alcohol, No Drug Use, , Care Facility Surgical History: None Psychiatricy History: Bipolar, Dementia Medication: Reviewed Family Medical History - Family Member Mother History Unknown: Yes Ethnicity: Unknown Living Status: Unknown ED Physical Exam - Physical Examination General/Constitutional: Awake, Well-developed, well-nourished, Alert, No distress, GCS 15, Non-toxic appearing, Ambulatory Head: Atraumatic Eyes: Lids, conjuctiva normal, PERRL, EOMI Skin: Nl inspection, No rash, No skin lesions, No ecchymosis, Well hydrated, No lymphadenopathy ENMT: External ears, nose nl, TM canals nl, Nasal exam nl, Lips, teeth, gums nl , Oropharynx nl, Tonsils nl Neck: Nontender, Full ROM w/o pain, No JVD, No nuchal rigidity, No bruit, No mass, No stridor Respiratory: Nl effort/Exclusion, Clear to Auscultation, No Wheeze/Rhonchi/Rales Cardio Vascular: No murmur, gallop, rubs, NL S1 S2, Carotid/Femoral/Distal pulses equal bilaterally Other Cardio Vascular comments:: Irregular Irregular Rhythm GI: No tenderness/rebounding/guarding, No organomegaly, No hernia, Normal BS's, Nondistended, No mass/bruits, No McBurney tenderness, Rectum exam nl : No CVA tenderness Extremities: No tenderness or effusion, Full ROM, normal strength in all extremities, No edema, Normal digits & nails Neuro/Psych: Alert/oriented, DTR's symmetric, Normal sensory exam, Normal motor strength, Judgement/insight normal, Mood normal, Normal gait, No focal deficits Misc: Normal back, No paraspinal tenderness ED Labs/Radiology/EKG Results - Lab Results Comments:: Reviewed - Radiology Results Comments:: NAD - EKG Interpretations EKG Time:: 16:15 Rate & Rhythm: 83; Atrial Fibrillation Comments:: old IWMI; non-specific st-t changes ED Septic Shock - . Is Septic Shock (SBP<90, OR Lactate>4 mmol\L) present?: No - <6hrs of presentation: Vital Signs: Vital Signs - 8 hr 03/13/18 15:41 Temp 97.3 F HR 82 RR 18 BP 90/48 O2 Sat % 96 ED Reassessment (Disposition) - Reassessment Reassessment Condition:: Improved - Diagnosis Diagnosis:: Hypotension; Dehydration; Weakness; Atrial Fibrillation; UTI; Sepsis; Hyperglycemia; DM - Aftercare/Follow up Instructions Aftercare/Follow-Up Instructions:: Counseled pt regarding lab results/diagnosis & need follow up, Counseled pt & family regarding lab results/diagnosis & need follow up - Patient Disposition Discharge/Transfer:: Acute Care w/in this hosp Accepting Physician:: Dr. Whitley Time Called:: [id number] Time Responded:: 17:30 Admitted to:: Telemetry Spoke to:: Dr. Whitley Admitting Medical Physician:: Dr. Whitley Condition at Disposition:: Stable, Improved
[2018-03-13 16:33] LABS: % EOSINOPHILS 1.6 % (0.0-5.0); % LYMPHOCYTES 6.7 % (20.0-50.0); % NEUTROPHILS 85.7 % (40.0-80.0); EOSINOPHILE ABSOLUTE 0.1 Th/cmm (0.1-0.4); HEMATOCRIT 38.9 % (41.0-60); HEMOGLOBIN 13.1 gm/dL (12-16); LYMPHOCYTE ABSOLUTE 0.5 Th/cmm (1.5-3.0); MEAN CELL VOLUME 97.5 fl (80-99); MEAN CORPUSCULAR HEMOGLOBIN 32.7 pg (27.0-31.0); MEAN CORPUSCULAR HGB CONC 33.6 pg (28.0-36.0); MEAN PLATELET VOLUME 7.4 fl; MONOCYTE ABSOLUTE 0.4 Th/cmm (0.3-1.0); NEUTROPHILE ABSOLUTE 5.9 Th/cmm (1.8-8.0); PLATELET COUNT 139 Th/cmm (150-400); RED BLOOD COUNT 3.99 Mil/cmm (3.80-5.80); RED CELL DISTRIBUTION WIDTH 12.3 % (11.5-20.0); WHITE BLOOD COUNT 6.9 Th/cmm (4.8-10.8)
[2018-03-13 16:44] LABS: INR 1.03 (0.5-1.4); PROTHROMBIN TIME (TEST) 10.7 SECONDS (9.5-11.5)
[2018-03-13 16:48] LABS: ALB/GLOB RATIO 1.1 (1.0-1.8); ALBUMIN 3.3 gm/dL (4.2-5.5); ALKALINE PHOSPHATASE 101 U/L (34-104); AMYLASE SERUM 92 U/L (29-103); ANION GAP 11.8 (7.0-16.0); BILIRUBIN,TOTAL 0.4 mg/dL (0.3-1.0); BUN - UREA NITROGEN 24 mg/dL (7-25); CHLORIDE 105 mEq/L (98-107); CREATININE - SERUM 1.4 mg/dL (0.7-1.3); CREATININE KINASE 60 U/L (30-223); GLUCOSE 188 mg/dL (70-105); LIPASE 32 U/L (11-82); POTASSIUM SERUM 3.8 mEq/L (3.5-5.1); SGOT 15 U/L (13-39); SGPT/ALT 13 U/L (7-52); SODIUM SERUM 139 mEq/L (136-145); TOTAL PROTEIN,SERUM 6.4 gm/dL (6.0-8.3)
[2018-03-13 16:49] LABS: TROP I 0.01 ng/mL (0.01-0.05)
[2018-03-13 17:53] LABS: URINE SOURCE MIDSTREAM
[2018-03-13 17:55] LABS: URINE BILIRUBIN NEGATIVE (NEGATIVE); URINE BLOOD NEGATIVE (NEGATIVE); URINE GLUCOSE (UA) NEGATIVE (NEGATIVE); URINE KETONE NEGATIVE (NEGATIVE); URINE LEUKOCYTE ESTERASE TRACE (NEGATIVE); URINE MICROSCOPIC INDICATED? YES; URINE NITRATE NEGATIVE (NEGATIVE); URINE PH 5.5 (4.6 - 8.0); URINE PROTEIN NEGATIVE (NEGATIVE); URINE UROBILINOGEN 0.2 E.U./dL (0.2 - 1.0)
[2018-03-13 18:05] LABS: URINE CLARITY CLEAR (CLEAR); URINE COLOR YELLOW
[2018-03-13 18:14] LABS: URINE RBC 0-2 /hpf (0-5)
[2018-03-13 18:15] LABS: URINE BACTERIA 1+ /hpf (NONE SEEN); URINE EPITHELIAL CELLS FEW /lpf (FEW); URINE FINE GRANULAR CAST 0-2 /lpf (NONE SEEN)
[2018-03-13] MEDS ORDERED: cefTRIAXone 1 GM in Sodium Chloride 0.9% 50 ML IV ONE (20:52)
[2018-03-13] MEDS ORDERED: Albuterol/Ipratropium Neb 3 ML AERS HHN PRN (21:23)
[2018-03-13] MEDS ORDERED: Maalox 30 mL Cup PO PRN (21:23)
[2018-03-13] MEDS ORDERED: Sodium Chloride 0.9% 1,000 ML IV SCH (21:30)
[2018-03-13] MEDS ORDERED: cefTRIAXone 1 GM in Sodium Chloride 0.9% 50 ML IV SCH (22:03)
[2018-03-13 22:27] VITALS: BP 140/64
[2018-03-13] MEDS: Sodium Chloride 0.9% 1,000 ML IV SCH (23:05)
[2018-03-13] MEDS: cefTRIAXone 1 GM in Sodium Chloride 0.9% 50 ML IV SCH (23:08)
[2018-03-14 05:02] LABS: % BASOPHILS 0.3 % (0.0-2.0); % EOSINOPHILS 9.3 % (0.0-5.0); % LYMPHOCYTES 21.5 % (20.0-50.0); % MONOCYTES 9.2 % (2.0-10.0); % NEUTROPHILS 59.7 % (40.0-80.0); EOSINOPHILE ABSOLUTE 0.4 Th/cmm (0.1-0.4); HEMATOCRIT 36.1 % (41.0-60); MEAN CELL VOLUME 97.1 fl (80-99); MEAN CORPUSCULAR HEMOGLOBIN 32.2 pg (27.0-31.0); MEAN CORPUSCULAR HGB CONC 33.1 pg (28.0-36.0); MEAN PLATELET VOLUME 7.4 fl; MONOCYTE ABSOLUTE 0.4 Th/cmm (0.3-1.0); NEUTROPHILE ABSOLUTE 2.9 Th/cmm (1.8-8.0); PLATELET COUNT 148 Th/cmm (150-400); RED BLOOD COUNT 3.72 Mil/cmm (3.80-5.80); RED CELL DISTRIBUTION WIDTH 12.7 % (11.5-20.0); WHITE BLOOD COUNT 4.7 Th/cmm (4.8-10.8)
[2018-03-14 05:11] LABS: ALBUMIN 2.9 gm/dL (4.2-5.5); ALKALINE PHOSPHATASE 89 U/L (34-104); ANION GAP 9.3 (7.0-16.0); BILIRUBIN,TOTAL 0.3 mg/dL (0.3-1.0); BUN - UREA NITROGEN 20 mg/dL (7-25); CALCIUM SERUM 8.5 mg/dL (8.6-10.3); CARBON DIOXIDE 25.4 mEq/L (21.0-31.0); CHLORIDE 110 mEq/L (98-107); CREATININE - SERUM 1.2 mg/dL (0.7-1.3); POTASSIUM SERUM 3.7 mEq/L (3.5-5.1); SGOT 13 U/L (13-39); SGPT/ALT 10 U/L (7-52); SODIUM SERUM 141 mEq/L (136-145); TOTAL PROTEIN,SERUM 5.7 gm/dL (6.0-8.3)
[2018-03-14 06:08] LABS: GLUCOSE 89 mg/dL (70-105)
--- NOTE | 2018-03-14 08:32 | Diagnostic Imaging Report ---
Portable chest x-ray HISTORY: Pain The overall heart size is difficult to assess with portable technique in a poor inspiration. No focal pulmonary processes. No hilar or mediastinal abnormalities. IMPRESSION: 1. No acute pulmonary processes
[2018-03-14] MEDS: Multivitamin Tab PO SCH (08:47)
--- NOTE | 2018-03-14 09:09 | History and Physical ---
History of Present Illness - HPI Chief Complaint: Weakness, poor intake, low BP HPI: Patient was send from SNF due that x 3 days patient has been weak, with poor intake, and low BP. During ER evaluation was found UTI and low BP. Vital Signs: Last Vital Signs Temp 97.0 F 03/14/18 09:01 Pulse 60 03/14/18 09:01 Resp 18 03/14/18 09:01 BP 140/87 03/14/18 09:01 Pulse Ox 98 03/14/18 09:01 Past Medical History Cardiovascular: Report: AFIB, CAD Pulmonary: Report: COPD MEDICARE BILLER: Report: Dementia GI: Report: No Pertinent Hx Psych: Report: Psychosis Rheumatologic: Report: No pertinent Hx Infectious Disease: Report: No Pertinent Hx Renal/: Report: No Pertinent Hx Endocrine: Report: No Pertinent Hx Dermatology: Report: Eczema - Past Surgical History Past Surgical History: No pertinent Hx Family Medical History - Family Member Mother History Unknown: Yes Ethnicity: Unknown Living Status: Unknown Hx Family Cancer: No Hx Family Coronary Artery Disease: No Hx Family Congestive Heart Failure: No Hx Family Hypertension: No Hx Family Stroke: No Hx Family Diabetes: No Hx Family Seizures: No Hx Family Dementia: No Hx Family AIDS: No Hx Family HIV: No Hx Family COPD: No Hx Family Hepatitis: No Hx Family Psychiatric Problems: No Hx Family Tuberculosis: No Social History Smoke: No Alcohol: None Drugs: None Lives: Long Term Domestic Violence: Negative - Medications Home Medications: Home Medication Medication Instructions Recorded Type Acetaminophen [Tylenol] 650 mg PO Q4HR PRN tab 09/02/17 Rx Al Hyd/Mg Hyd/Simethicone [Maalox] 30 ml PO Q4HR PRN udc 09/02/17 Rx Donepezil Hcl [Aricept] 10 mg PO HS tab 09/02/17 Rx Memantine [Namenda] 10 mg PO BID tab 09/02/17 Rx Multivitamin [Theragran] 1 tab PO DAILY tab 09/02/17 Rx risperiDONE [RisperDAL] 0.25 mg PO BID tab 09/02/17 Rx Albuterol/Ipratropium Neb [Duoneb 3 ml HHN Q4H PRN 03/13/18 History Neb] Melatonin [Melatin] 6 mg PO HS 03/13/18 History - Allergies Allergies/Adverse Reactions: Allergies Allergy/AdvReac Type Severity Reaction Status Date / Time No Known Allergies Allergy Verified 03/13/18 15:36 Review of Systems - Review of Systems Constitutional: Report: Weakness Eyes: Report: No Significant ENT: Report: No Significant Respiratory: Report: No Significant Cardiovascular: Report: No Significant Gastrointestinal: Report: No Significant Genitourinary: Report: No Significant Musculoskeletal: Report: No Significant Skin: Report: Rash Neurological: Report: Weakness Physical Exam - Physical Exam HEENT: Report: Ears Nose Throat within normal limits Neck: Report: Within normal limits Cardiovascular Systems: Report: Regular, Rate and Rhythm Respiratory: Report: Breath Sounds are within normal limits Abdomen: Report: Non-tender to palpation Back: Report: Inspection of back is within normal limits. Extremities: Report: Non-tender to palpation. Skin: Report: Skin Rash noted Neuro/Psych: Report: Disoriented to name time or place - Lab Results All Lab Results last 24 hours: Laboratory Results - last 24 hr 03/13/18 03/13/18 03/13/18 16:28 16:28 16:28 WBC 6.9 RBC 3.99 Hgb 13.1 Hct 38.9 L MCV 97.5 MCH 32.7 H MCHC Differential 33.6 RDW 12.3 Plt Count 139 L MPV 7.4 Neutrophils % 85.7 H Lymphocytes % 6.7 L Monocytes % 6.0 Eosinophils % 1.6 Basophils % 0.0 PT 10.7 INR 1.03 PTT (Actin FS) 23.0 L Sodium 139 Potassium 3.8 Chloride 105 Carbon Dioxide 26.0 Anion Gap 11.8 BUN 24 Creatinine 1.4 H Est GFR ( Amer) TNP Est GFR (Non-Af Amer) TNP BUN/Creatinine Ratio 17.1 Glucose 188 H Whole Bld Lactic Acid Calcium 9.0 Total Bilirubin 0.4 AST 15 ALT 13 Alkaline Phosphatase 101 Creatine Kinase 60 Troponin I Total Protein 6.4 Albumin 3.3 L Globulin 3.1 Albumin/Globulin Ratio 1.1 Amylase 92 Lipase 32 TSH Urine Source Urine Color Urine Clarity Urine pH Ur Specific [place] Urine Protein Urine Glucose (UA) Urine Ketones Urine Blood Urine Nitrate Urine Bilirubin Urine Urobilinogen Ur Leukocyte Esterase Urine RBC Urine WBC Ur Epithelial Cells Urine Bacteria Fine Granular Casts 03/13/18 03/13/18 03/14/18 16:28 16:45 04:38 WBC 4.7 L RBC 3.72 L Hgb 12.0 Hct 36.1 L MCV 97.1 MCH 32.2 H MCHC Differential 33.1 RDW 12.7 Plt Count 148 L MPV 7.4 Neutrophils % 59.7 Lymphocytes % 21.5 Monocytes % 9.2 Eosinophils % 9.3 H Basophils % 0.3 PT INR PTT (Actin FS) Sodium Potassium Chloride Carbon Dioxide Anion Gap BUN Creatinine Est GFR ( Amer) Est GFR (Non-Af Amer) BUN/Creatinine Ratio Glucose Whole Bld Lactic Acid 1.82 Calcium Total Bilirubin AST ALT Alkaline Phosphatase Creatine Kinase Troponin I 0.01 Total Protein Albumin Globulin Albumin/Globulin Ratio Amylase Lipase TSH Urine Source [place] Urine Color YELLOW Urine Clarity CLEAR Urine pH 5.5 Ur Specific [place] >= 1.030 Urine Protein NEGATIVE Urine Glucose (UA) NEGATIVE Urine Ketones NEGATIVE Urine Blood NEGATIVE Urine Nitrate NEGATIVE Urine Bilirubin NEGATIVE Urine Urobilinogen 0.2 Ur Leukocyte Esterase TRACE H Urine RBC 0-2 H Urine WBC 2-5 Ur Epithelial Cells FEW Urine Bacteria 1+ H Fine Granular Casts 0-2 H 03/14/18 03/14/18 04:38 04:38 WBC RBC Hgb Hct MCV MCH MCHC Differential RDW Plt Count MPV Neutrophils % Lymphocytes % Monocytes % Eosinophils % Basophils % PT INR PTT (Actin FS) Sodium 141 Potassium 3.7 Chloride 110 H Carbon Dioxide 25.4 Anion Gap 9.3 BUN 20 Creatinine 1.2 Est GFR ( Amer) TNP Est GFR (Non-Af Amer) TNP BUN/Creatinine Ratio 16.7 Glucose 89 D Whole Bld Lactic Acid Calcium 8.5 L Total Bilirubin 0.3 AST 13 ALT 10 Alkaline Phosphatase 89 Creatine Kinase Troponin I Total Protein 5.7 L Albumin 2.9 L Globulin 2.8 Albumin/Globulin Ratio 1.0 Amylase Lipase TSH 1.34 Urine Source Urine Color Urine Clarity Urine pH Ur Specific [place] Urine Protein Urine Glucose (UA) Urine Ketones Urine Blood Urine Nitrate Urine Bilirubin Urine Urobilinogen Ur Leukocyte Esterase Urine RBC Urine WBC Ur Epithelial Cells Urine Bacteria Fine Granular Casts - Assessment Assessment: Patient is awake, alert, calm, confused, not oriented. Dx: Sepsis secondary to UTI, Dehydration, Dementia, COPD. - Plan Plan: Patient is in IV NS, IV AB, Continue with SNF meds, Continue with same diet. Will continue to monitor.
[2018-03-14] MEDS: Sodium Chloride 0.9% 1,000 ML IV SCH (13:48)
[2018-03-14] MEDS ORDERED: MELATONIN 6 MG PO SCH (21:00)
[2018-03-14] MEDS: cefTRIAXone 1 GM in Sodium Chloride 0.9% 50 ML IV SCH (21:33)
[2018-03-15] MEDS: Sodium Chloride 0.9% 1,000 ML IV SCH (05:11)
[2018-03-15 06:12] LABS: EOSINOPHILE ABSOLUTE 0.6 Th/cmm (0.1-0.4); MONOCYTE ABSOLUTE 0.5 Th/cmm (0.3-1.0); NEUTROPHILE ABSOLUTE 3.4 Th/cmm (1.8-8.0); WHITE BLOOD COUNT 5.9 Th/cmm (4.8-10.8)
[2018-03-15 06:29] LABS: % BASOPHILS 0.4 % (0.0-2.0); % EOSINOPHILS 9.7 % (0.0-5.0); % MONOCYTES 8.4 % (2.0-10.0); % NEUTROPHILS 58.5 % (40.0-80.0); HEMATOCRIT 40.7 % (41.0-60); HEMOGLOBIN 13.5 gm/dL (12-16); LYMPHOCYTE ABSOLUTE 1.4 Th/cmm (1.5-3.0); MEAN CELL VOLUME 97.1 fl (80-99); MEAN CORPUSCULAR HEMOGLOBIN 32.2 pg (27.0-31.0); MEAN CORPUSCULAR HGB CONC 33.1 pg (28.0-36.0); MEAN PLATELET VOLUME 8.2 fl; PLATELET COUNT 168 Th/cmm (150-400); RED BLOOD COUNT 4.19 Mil/cmm (3.80-5.80); RED CELL DISTRIBUTION WIDTH 12.4 % (11.5-20.0)
[2018-03-15 07:01] LABS: ALBUMIN 3.4 gm/dL (4.2-5.5); ALKALINE PHOSPHATASE 100 U/L (34-104); ANION GAP 10.6 (7.0-16.0); BILIRUBIN,TOTAL 0.3 mg/dL (0.3-1.0); BUN - UREA NITROGEN 16 mg/dL (7-25); CALCIUM SERUM 9.1 mg/dL (8.6-10.3); CHLORIDE 107 mEq/L (98-107); CREATININE - SERUM 1.1 mg/dL (0.7-1.3); GLUCOSE 86 mg/dL (70-105); POTASSIUM SERUM 3.6 mEq/L (3.5-5.1); SGOT 19 U/L (13-39); SGPT/ALT 13 U/L (7-52); SODIUM SERUM 140 mEq/L (136-145); TOTAL PROTEIN,SERUM 6.8 gm/dL (6.0-8.3)
[2018-03-15] MEDS: Multivitamin Tab PO SCH (08:18)
--- NOTE | 2018-03-15 08:51 | General Progress Note ---
Subjective - Review of Systems Service Date: 03/15/18 Subjective: Why I am here ? Objective - Results Result Diagrams: 03/15/18 05:39 03/15/18 05:39 Recent Labs: Laboratory Last Values WBC 5.9 Th/cmm (4.8-10.8) 03/15/18 05:39 RBC 4.19 Mil/cmm (3.80-5.80) 03/15/18 05:39 Hgb 13.5 gm/dL (12-16) 03/15/18 05:39 Hct 40.7 % (41.0-60) L 03/15/18 05:39 MCV 97.1 fl (80-99) 03/15/18 05:39 MCH 32.2 pg (27.0-31.0) H 03/15/18 05:39 MCHC Differential 33.1 pg (28.0-36.0) 03/15/18 05:39 RDW 12.4 % (11.5-20.0) 03/15/18 05:39 Plt Count 168 Th/cmm (150-400) 03/15/18 05:39 MPV 8.2 fl 03/15/18 05:39 Neutrophils % 58.5 % (40.0-80.0) 03/15/18 05:39 Lymphocytes % 23.0 % (20.0-50.0) 03/15/18 05:39 Monocytes % 8.4 % (2.0-10.0) 03/15/18 05:39 Eosinophils % 9.7 % (0.0-5.0) H 03/15/18 05:39 Basophils % 0.4 % (0.0-2.0) 03/15/18 05:39 PT 10.7 SECONDS (9.5-11.5) 03/13/18 16:28 INR 1.03 (0.5-1.4) 03/13/18 16:28 PTT (Actin FS) 23.0 SECONDS (26.0-38.0) L 03/13/18 16:28 Sodium 140 mEq/L (136-145) 03/15/18 05:39 Potassium 3.6 mEq/L (3.5-5.1) 03/15/18 05:39 Chloride 107 mEq/L (98-107) 03/15/18 05:39 Carbon Dioxide 26.0 mEq/L (21.0-31.0) 03/15/18 05:39 Anion Gap 10.6 (7.0-16.0) 03/15/18 05:39 BUN 16 mg/dL (7-25) 03/15/18 05:39 Creatinine 1.1 mg/dL (0.7-1.3) 03/15/18 05:39 Est GFR ( Amer) TNP 03/15/18 05:39 Est GFR (Non-Af Amer) TNP 03/15/18 05:39 BUN/Creatinine Ratio 14.5 03/15/18 05:39 Glucose 86 mg/dL (70-105) 03/15/18 05:39 Whole Bld Lactic Acid 1.82 mmol/L (0.60-1.99) 03/13/18 16:28 Calcium 9.1 mg/dL (8.6-10.3) 03/15/18 05:39 Total Bilirubin 0.3 mg/dL (0.3-1.0) 03/15/18 05:39 AST 19 U/L (13-39) 03/15/18 05:39 ALT 13 U/L (7-52) 03/15/18 05:39 Alkaline Phosphatase 100 U/L (34-104) 03/15/18 05:39 Creatine Kinase 60 U/L (30-223) 03/13/18 16:28 Troponin I 0.01 ng/mL (0.01-0.05) 03/13/18 16:28 Total Protein 6.8 gm/dL (6.0-8.3) 03/15/18 05:39 Albumin 3.4 gm/dL (4.2-5.5) L 03/15/18 05:39 Globulin 3.4 gm/dL 03/15/18 05:39 Albumin/Globulin Ratio 1.0 (1.0-1.8) 03/15/18 05:39 Amylase 92 U/L (29-103) 03/13/18 16:28 Lipase 32 U/L (11-82) 03/13/18 16:28 TSH 1.34 uIU/ml (0.34-5.60) 03/14/18 04:38 Urine Source MIDSTREAM 03/13/18 16:45 Urine Color YELLOW 03/13/18 16:45 Urine Clarity CLEAR (CLEAR) 03/13/18 16:45 Urine pH 5.5 (4.6 - 8.0) 03/13/18 16:45 Ur Specific [place] >= 1.030 (1.005-1.030) 03/13/18 16:45 Urine Protein NEGATIVE mg/dL (NEGATIVE) 03/13/18 16:45 Urine Glucose (UA) NEGATIVE mg/dL (NEGATIVE) 03/13/18 16:45 Urine Ketones NEGATIVE mg/dL (NEGATIVE) 03/13/18 16:45 Urine Blood NEGATIVE (NEGATIVE) 03/13/18 16:45 Urine Nitrate NEGATIVE (NEGATIVE) 03/13/18 16:45 Urine Bilirubin NEGATIVE (NEGATIVE) 03/13/18 16:45 Urine Urobilinogen 0.2 E.U./dL (0.2 - 1.0) 03/13/18 16:45 Ur Leukocyte Esterase TRACE (NEGATIVE) H 03/13/18 16:45 Urine RBC 0-2 /hpf (0-5) H 03/13/18 16:45 Urine WBC 2-5 /hpf (0-5) 03/13/18 16:45 Ur Epithelial Cells FEW /lpf (FEW) 03/13/18 16:45 Urine Bacteria 1+ /hpf (NONE SEEN) H 03/13/18 16:45 Fine Granular Casts 0-2 /lpf (NONE SEEN) H 03/13/18 16:45 - Physical Exam Vitals and I&O: Vital Signs Temp 98.1 F 03/15/18 07:33 Pulse 65 03/15/18 07:33 Resp 18 03/15/18 07:33 BP 150/69 03/15/18 07:33 Pulse Ox 97 03/15/18 07:33 Intake & Output 03/14/18 03/15/18 03/15/18 18:59 06:59 18:59 Intake Total 1600 1000 Balance 1600 1000 Weight (lbs) 65.181 kg 70.307 kg Intake: Intake, IV Amount 1000 1000 Sodium Chloride 0.9% 1, 1000 1000 000 ml @ 90 mls/hr IV . Q11H7M [facility] Rx#:[id number] Oral 600 Other: # Voids 4 # Bowel Movements 1 Stool Characteristics Soft Formed Brown Weight Source Bedscale Bedscale Active Medications: Current Medications Acetaminophen (Tylenol) 650 mg PO Q4HR PRN PRN Reason: Mild Pain / Temp above 100 Stop: 05/12/18 21:22 Last Admin: 03/14/18 22:11 Dose: 650 mg Al Hydrox/Mg Hydrox/Simethicone (Maalox) 30 ml PO Q4HR PRN PRN Reason: GI DISTRESS Stop: 05/12/18 21:22 Albuterol/Ipratropium (Duoneb Neb) 3 ml HHN Q4H PRN PRN Reason: Shortness of Breath or Wheeze Stop: 05/12/18 21:22 Donepezil HCl (Aricept) 10 mg PO HS [facility] Stop: 05/13/18 20:59 Last Admin: 03/14/18 21:33 Dose: 10 mg Ceftriaxone Sodium 1 gm/ (Sodium Chloride) 50 mls @ 100 mls/hr IV Q24HR [facility] Stop: 05/12/18 21:29 Last Admin: 03/14/18 21:33 Dose: 100 mls/hr Sodium Chloride (Nacl 0.9%) 1,000 mls @ 90 mls/hr IV .Q11H7M [facility] Stop: 05/12/18 22:02 Last Admin: 03/15/18 05:11 Dose: 90 mls/hr Memantine (Namenda) 10 mg PO BID [facility] Stop: 05/13/18 08:59 Last Admin: 03/15/18 08:18 Dose: 10 mg Multivitamins/Vitamin C (Theragran) 1 tab PO DAILY [facility] Stop: 05/13/18 08:59 Last Admin: 03/15/18 08:18 Dose: 1 tab Risperidone (Risperdal) 0.25 mg PO BID [facility]; Protocol Stop: 05/13/18 08:59 Last Admin: 03/15/18 08:18 Dose: 0.25 mg General: Alert, No acute distress, Other (Confused) HEENT: Atraumatic Neck: Supple Cardiovascular: Regular rate Lungs: Clear to auscultation Abdomen: Bowel sounds, Soft Extremities: Other (No edema) Neurological: Other (Unstable gait) Skin: Other (Warm and dry) Psych/Mental Status: Other (Confused, not oriented) Assessment/Plan - Assessment Assessment: Patient is awake, alert, calm, confused, not oriented. Dx: Sepsis secondary to UTI, Dehydration, Dementia, COPD. - Plan Plan: Patient is in IV NS, IV AB, Continue with SNF meds, Continue with same diet. Will continue to monitor. Nutritional Asmnt/Malnutr-PDOC - Dietary Evaluation Malnutrition Findings (Please click <Entered> for more info): Nutritional Asmnt/Malnutrition Start: 03/14/18 17: 00 Text: Status: Active Freq: Protocol: Document 03/14/18 17:00 ANTHONY (Rec: 03/14/18 17:11 [facility] [id number]) Nutritional Asmnt/Malnutrition Patient General Information Nutritional Screening High Risk Consult Diagnosis UTI, dehydration Pertinent Medical Hx/Surgical Hx HTN, dyslipidemia, PUD/GERD, dementia, bipolar Subjective Information Pt seen sitting up in bed at time of visit, awake and alert , lunch tray in the frount. Pt stated he did not like the lunch. Offered sandwich and pt accpeted. Pt stated appetite is normal as usual. Glucose 188 at admission noted. Current Diet Order/ Nutrition Support mech soft chopped with thin liquid Pertinent Medications theragran, nacl 0.9% Pertinent Labs 03/14 Cl 110, Ca 8.5, Alb 2.9 03/13 Cr 1.4, Glucose 188, Alb 3.3 Nutritional Hx/Data Height 1.68 m Height (Calculated Centimeters) 167.6 Current Weight (lbs) 65.317 kg Weight (Calculated Kilograms) 65.3 Weight (Calculated Grams) 56727.3 [place] Body Weight 142 Body Mass Index (BMI) 23.2 Weight Status Approriate GI Symptoms GI Symptoms None Last BM none noted Difficult in: None Skin Integrity/Comment: anna score 16, rash Current %PO Fair (50-74%) Estimated Nutritional Goals BEE in Kcals: Using Current wt Calories/Kcals/Kg 25-30 Kcals Calculated 9684-0799 Protein: Using Current wt Protein g/k Protein Calculated 65 Fluid: ml 1625-1950ml (1ml/kcal) Nutritional Problem No current Nutrition Prob Problem N/A Malnutrition Alert Is there a minimum of two criteria No selected? Query Text:Check all the applicable criteria. A minimum of two criteria are recommended for diagnosis of either severe or non-severe malnutrition. Malnutrition Related to Morbid Obesity Malnutrition related to morbid obesity No Intervention/Recommendation Comments 1. Continue with mech soft chopped with thin liquid diet as ordered. 2. Monitor PO intake, wt, labs and skin integrity 3. F/U as moderate risk in 3-5 days Expected Outcomes/Goals Expected Outcomes/Goals 1. PO intake to meet at least 75% of nutritional needs. 2. Wt stability, skin to remain intact, labs to approach WNL.
[2018-03-15] MEDS: cefTRIAXone 1 GM in Sodium Chloride 0.9% 50 ML IV SCH (21:18)
[2018-03-16 07:23] LABS: % BASOPHILS 0.3 % (0.0-2.0); % EOSINOPHILS 7.5 % (0.0-5.0); % MONOCYTES 9.9 % (2.0-10.0); % NEUTROPHILS 60.3 % (40.0-80.0); EOSINOPHILE ABSOLUTE 0.5 Th/cmm (0.1-0.4); HEMATOCRIT 37.5 % (41.0-60); HEMOGLOBIN 12.5 gm/dL (12-16); LYMPHOCYTE ABSOLUTE 1.3 Th/cmm (1.5-3.0); MEAN CORPUSCULAR HEMOGLOBIN 32.3 pg (27.0-31.0); MEAN CORPUSCULAR HGB CONC 33.3 pg (28.0-36.0); MONOCYTE ABSOLUTE 0.6 Th/cmm (0.3-1.0); NEUTROPHILE ABSOLUTE 3.6 Th/cmm (1.8-8.0); PLATELET COUNT 157 Th/cmm (150-400); RED BLOOD COUNT 3.86 Mil/cmm (3.80-5.80); RED CELL DISTRIBUTION WIDTH 12.3 % (11.5-20.0)
[2018-03-16 07:47] LABS: ALB/GLOB RATIO 1.1 (1.0-1.8); ALBUMIN 3.1 gm/dL (4.2-5.5); ALKALINE PHOSPHATASE 85 U/L (34-104); ANION GAP 9.8 (7.0-16.0); BILIRUBIN,TOTAL 0.3 mg/dL (0.3-1.0); BUN - UREA NITROGEN 18 mg/dL (7-25); CALCIUM SERUM 8.7 mg/dL (8.6-10.3); CARBON DIOXIDE 26.9 mEq/L (21.0-31.0); CHLORIDE 109 mEq/L (98-107); GLUCOSE 90 mg/dL (70-105); POTASSIUM SERUM 3.7 mEq/L (3.5-5.1); SGOT 17 U/L (13-39); SGPT/ALT 11 U/L (7-52); SODIUM SERUM 142 mEq/L (136-145)
[2018-03-16] MEDS: Multivitamin Tab PO SCH (08:36)
--- NOTE | 2018-03-16 09:12 | Discharge Summary ---
General Discharge Summary - Discharge Summary Laboratory Findings: Laboratory Results - last 24 hr 03/16/18 06:25 WBC 6.0 RBC 3.86 Hgb 12.5 Hct 37.5 L MCV 97.0 MCH 32.3 H MCHC Differential 33.3 RDW 12.3 Plt Count 157 MPV 8.0 Neutrophils % 60.3 Lymphocytes % 22.0 Monocytes % 9.9 Eosinophils % 7.5 H Basophils % 0.3 Disposition: Other Care w/in this hosp Home Medications: Home Medication Medication Instructions Recorded Type Acetaminophen [Tylenol] 650 mg PO Q4HR PRN tab 09/02/17 Rx Al Hyd/Mg Hyd/Simethicone [Maalox] 30 ml PO Q4HR PRN udc 09/02/17 Rx Donepezil Hcl [Aricept] 10 mg PO HS tab 09/02/17 Rx Memantine [Namenda] 10 mg PO BID tab 09/02/17 Rx Multivitamin [Theragran] 1 tab PO DAILY tab 09/02/17 Rx risperiDONE [RisperDAL] 0.25 mg PO BID tab 09/02/17 Rx Albuterol/Ipratropium Neb [Duoneb 3 ml HHN Q4H PRN 03/13/18 History Neb] Melatonin [Melatin] 6 mg PO HS 03/13/18 History Inpatient Medications: Current Medications Acetaminophen (Tylenol) 650 mg PO Q4HR PRN PRN Reason: Mild Pain / Temp above 100 Stop: 05/12/18 21:22 Last Admin: 03/14/18 22:11 Dose: 650 mg Al Hydrox/Mg Hydrox/Simethicone (Maalox) 30 ml PO Q4HR PRN PRN Reason: GI DISTRESS Stop: 05/12/18 21:22 Albuterol/Ipratropium (Duoneb Neb) 3 ml HHN Q4H PRN PRN Reason: Shortness of Breath or Wheeze Stop: 05/12/18 21:22 Donepezil HCl (Aricept) 10 mg PO HS [facility] Stop: 05/13/18 20:59 Last Admin: 03/15/18 21:18 Dose: 10 mg Ceftriaxone Sodium 1 gm/ (Sodium Chloride) 50 mls @ 100 mls/hr IV Q24HR [facility] Stop: 05/12/18 21:29 Last Infusion: 03/16/18 05:48 Dose: Infused Sodium Chloride (Nacl 0.9%) 1,000 mls @ 90 mls/hr IV .Q11H7M [facility] Stop: 05/12/18 22:02 Last Infusion: 03/15/18 19:19 Dose: Infused Memantine (Namenda) 10 mg PO BID [facility] Stop: 05/13/18 08:59 Last Admin: 03/16/18 08:36 Dose: 10 mg Multivitamins/Vitamin C (Theragran) 1 tab PO DAILY [facility] Stop: 05/13/18 08:59 Last Admin: 03/16/18 08:36 Dose: 1 tab Risperidone (Risperdal) 0.25 mg PO BID [facility]; Protocol Stop: 05/13/18 08:59 Last Admin: 03/16/18 08:36 Dose: 0.25 mg Consults and Follow-Up: Carlos Whitley [Primary Care Provider] -
[2018-03-16] MEDS ORDERED: Probiotic Screen MC PRN (09:42)
[2018-03-16] MEDS ORDERED: Lactobacillus Rhamnosus GG 15 Billion CFU CAP.SPRINK PO SCH (14:00)
== END 2018-03-16 13:10 | DRG 872 ==
LOC: ER 15:32 → TELE 21:17 → MSI 03-15 15:30
PROVIDERS: ADMIT General Practice; ATTEND General Practice
DX: A41.9 Sepsis, unspecified organism (principal); N39.0 Urinary tract infection, site not specified; E86.0 Dehydration; F03.90 Unspecified dementia, unspecified severity, without behavioral disturbance, psychotic disturbance, mood disturbance, and anxiety; J44.9 Chronic obstructive pulmonary disease, unspecified; I10 Essential (primary) hypertension; E78.5 Hyperlipidemia, unspecified; K21.9 Gastro-esophageal reflux disease without esophagitis; F31.9 Bipolar disorder, unspecified; I48.91 Unspecified atrial fibrillation; E11.65 Type 2 diabetes mellitus with hyperglycemia; I25.10 Atherosclerotic heart disease of native coronary artery without angina pectoris; Z87.11 Personal history of peptic ulcer disease; Z82.49 Family history of ischemic heart disease and other diseases of the circulatory system
CPT/HCPCS: 36415-UA; 71045-TC; 80053-TC; 81001-TC; 82150-TC; 82550-TC; 83036-90; 83605; 83690-TC; 84443-TC; 84484-TC; 85007-TC; 85025-TC; 85610-TC; 85730-TC; 93005; 94760; 96374; J0696; J7030; J7040; Z7610